=== PATIENT | female | born 1970 | race Caucasian/White ===

== ENCOUNTER 2016-04-18 16:17 | Emergency (ER) | payer OTHER ==
[~2016-04-18] VITALS: Ht 167.6 cm; Wt 87.0 kg
[~2016-04-18 16:17] MED LIST: ASPEC81 PO; BUPR-79 PO; DOXY-300 PO; GEMF600T3 PO; HYG25 PO; LSN10 PO
[2016-04-18 16:26] VITALS: TEMP 36.9; Ht 167.6 cm; Wt 87.0 kg
[2016-04-18] MEDS ORDERED: OXYCODONE HCL IR 5 MG TAB (IMMEDIATE RELEASE) PO STA (16:34)
--- NOTE | 2016-04-18 17:06 | DIAGNOSTIC IMAGING REPORT ---
LEFT FOOT MIN 3 VIEWS ROUTINE CLINICAL HISTORY: L foot pain pain COMPARISON: None DISCUSSION: Heel spur. Minimal degenerative change of the intertarsal as well as tarsometatarsal joints. No well-defined fracture or dislocation. Several well-corticated ossific fragments adjacent to the anterior calcaneus felt to be secondary to old trauma. There is no evidence for soft tissue swelling. IMPRESSION: Heel spur. Minimal to mild degenerative change and or findings secondary to old trauma. No acute process. Electronically signed by: Chito Simental M.D. 04/18/2016 5:04 PM
[2016-04-18] MEDS ORDERED: ASPEC325 PO (17:22)
[2016-04-18] MEDS ORDERED: LSN/10125 PO (17:22)
[2016-04-18] MEDS ORDERED: AMT10 PO (17:22)
[2016-04-18] MEDS ORDERED: OXYC1TAB3 PO (17:23)
[2016-04-18 17:45] VITALS: BP 149/105; PULSE 107; O2SAT 98
--- NOTE | 2016-04-18 18:54 | EMERGENCY ROOM VISIT NOTE ---
History First contact with patient: 16:29 Chief Complaint: FOOT PAIN Stated Complaint: TWISTED LT FOOT, FELT SOMETHING POP, PAIN/NUMB TOE History of Present Illness The patient is a 45 year old female who presents to the Emergency Room with complaints of severe left foot pain. The patient reports that she was walking across her barn floor when she twisted her foot on a board. She reports a popping sensation on the outer aspect of the foot, and pain that escalated to a 10 out of 10 with any weightbearing. She denies any pain extending into the ankle or leg. She reports mild paresthesias of the foot and toes. The patient reports that she has been having problems with her foot, and is scheduled to see [facility] in 3 days. She denies a prior history of left foot fractures. Review of Systems 10 system review was performed and was negative except for pertinent positives and negatives as indicated in history of present illness Past Medical/Surgical History Medical Problems: (1) Colitis (2) Diverticulitis (3) Meningitis Family History Hypertension FATHER MOTHER Social History Smoking Status: Never Smoker Drug Use: none Marital Status: Housing Status: lives with family Occupation Status: employed Current/Historical Medications Scheduled Amitriptyline HCl (Amitriptyline HCl), 10 MG PO QPM Aspirin (Aspirin), 650 MG PO BID Bupropion (Wellbutrin Sr), 150 MG PO BID Gemfibrozil (Lopid), 600 MG PO BID Hctz/Lisinopril (Lisinopril/Hctz 10/12.5 Mg), 1 TAB PO QAM Scheduled PRN Oxycodone Ir (Roxicodone Ir), 1-2 TAB PO Q4H PRN for Pain Allergies Coded Allergies: No Known Allergies (Verified , 04/18/16) Physical Exam Vital Signs Date Time Temp Pulse Resp B/P Pulse Ox O2 Delivery O2 Flow Rate FiO2 04/18/16 17:45 107 18 149/105 98 Room Air 04/18/16 16:26 36.9 116 18 139/97 100 Room Air Physical Exam CONSTITUTIONAL: Healthy and well nourished. Alert and oriented X 3 with positive affect. Patient appears in moderately severe discomfort. HEENT: Normocephalic, atraumatic. Pupils equal, round and reactive. NECK: Full active range of motion without discomfort. MUSCULOSKELETAL: Examination shows diffuse lateral foot edema and ecchymosis. She has no focal tenderness over the ankle region, dorsal midfoot, phalanges or calcaneus. Pedal pulses are intact. INTEGUMENTARY: No rash or other significant dermatologic conditions noted. NEUROLOGIC: Left foot and toes are sensory intact. Medical Decision & Procedures ER Provider Diagnostic Interpretation: My interpretation of left foot x-rays does not show any acute fractures or dislocations. Chronic changes are noted, including a calcaneal spur. Radiologist report is as follows: LEFT FOOT MIN 3 VIEWS ROUTINE CLINICAL HISTORY: L foot pain pain COMPARISON: None DISCUSSION: Heel spur. Minimal degenerative change of the intertarsal as well as tarsometatarsal joints. No well-defined fracture or dislocation. Several well-corticated ossific fragments adjacent to the anterior calcaneus felt to be secondary to old trauma. There is no evidence for soft tissue swelling. IMPRESSION: Heel spur. Minimal to mild degenerative change and or findings secondary to old trauma. No acute process. Medications Administered Medications (Trade) Dose Ordered Sig/Vj Route Start Time Stop Time Status Last Admin Dose Admin Oxycodone HCl (Roxicodone Immediate Rel Tab) 5 mg NOW STAT PO 04/18/16 16:34 04/18/16 16:35 DC 04/18/16 16:48 5 MG ED Course Patient history and physical exam were performed. Nurse's notes were reviewed. The patient was administered OxyIR 5 mg for pain. She refused any intramuscular treatment. She also was provided an ice pack. X-rays of the left foot did not show any acute findings. The patient was fitted with crutches , and encouraged to remain nonweightbearing. Ibuprofen and Tylenol in alternating fashion for baseline pain relief. The patient received a prescription for OxyIR as needed for breakthrough pain. No drinking or driving while taking OxyIR. The patient will follow-up with [facility] on Sunday as scheduled. The patient was happy with plan of care, and rated her pain a 5 out of 10 at the time of discharge. Medical Decision Impression Primary Impression: Injury of left foot Departure Information Prescriptions Oxycodone Ir (Roxicodone Ir) 5 Mg Tab 1-2 TAB PO Q4H Y for Pain, #15 TAB For Initial Treatment Prov: Moo Quintanilla PA 04/18/16 Referrals Sapna Perez M.D. (PCP) Patient Instructions A Signature Page, My [facility]
== END 2016-04-18 17:47 | disposition home or self-care (01) ==
LOC: C.EDB 16:18 → C.EDD 17:47
DX: S99.922A Unspecified injury of left foot, initial encounter (principal); X50.1XXA Overexertion from prolonged static or awkward postures, initial encounter; Y93.01 Activity, walking, marching and hiking; Z79.82 Long term (current) use of aspirin

== ENCOUNTER → 2016-05-19 | Outpatient (CLI) | payer OTHER ==
[~2016-05-19] MED LIST changes: +AMT10 PO; +ASPEC325 PO; -ASPEC81 PO; -DOXY-300 PO; -HYG25 PO; +LSN/10125 PO; -LSN10 PO; +OXYC1TAB3 PO
[2016-05-19 11:06] LABS: BLOOD UREA NITROGEN 28 mg/dl (7-18); BUN/CREATININE RATIO 23.2 (10-20); CALCIUM 9.9 mg/dl (8.5-10.1); CARBON DIOXIDE 24 mmol/L (21-32); CHLORIDE 106 mmol/L (98-107); GLUCOSE 103 mg/dl (70-99); POTASSIUM 4.4 mmol/L (3.5-5.1); SODIUM 141 mmol/L (136-145)
== END | disposition home or self-care (01) ==
LOC: C.LAB 09:36
PROVIDERS: ATTEND Family Medicine
DX: E66.9 Obesity, unspecified (principal)

== ENCOUNTER → 2016-06-21 | Outpatient (CLI) | payer OTHER ==
--- NOTE | 2016-06-21 10:12 | DIAGNOSTIC IMAGING REPORT ---
MRI OF THE LEFT ANKLE NO CONTRAST CLINICAL HISTORY: Left ankle pain. History of trauma 2 years ago. COMPARISON STUDY: Conventional radiographic study the left foot dated 04/18/2016 FINDINGS: Imaging was performed in the sagittal, axial, and coronal planes. The talar dome appears unremarkable in appearance. There is no evidence of major ligamentous disruption. There is a partial tear the peroneus longus tendon. There is marrow edema within the base of the third, fourth and fifth metatarsals. There is also marrow edema present within the medial cuneiform. There is a prominent plantar calcaneal spur with subjacent marrow edema. There is mild edema within the medial band of the plantar fascia at the calcaneal insertion. The findings are consistent with plantar fasciitis. IMPRESSION: 1. Plantar fasciitis with secondary reactive marrow edema involving the calcaneus 2. Tendinopathy and partial tear of the peroneus longus tendon 3. Nonspecific marrow edema within within the fourth third and second metatarsal bases. There is also marrow edema present within the medial cuneiform. Electronically signed by: Nick Duke M.D. 06/21/2016 10:11 AM Dictated Date/Time: 06/21/2016 10:02 AM
== END | disposition home or self-care (01) ==
LOC: C.MRI 08:38
PROVIDERS: ATTEND Orthopaedic Surgery Sports Medicine
DX: M72.2 Plantar fascial fibromatosis (principal); S96.812A Strain of other specified muscles and tendons at ankle and foot level, left foot, initial encounter; X58.XXXA Exposure to other specified factors, initial encounter; R60.0 Localized edema

== ENCOUNTER → 2016-06-22 | Outpatient (CLI) | payer OTHER ==
--- NOTE | 2016-06-22 15:37 | MAMMOGRAPHY REPORT ---
BILATERAL DIGITAL SCREENING MAMMOGRAM TOMOSYNTHESIS WITH CAD: 06/22/2016 CLINICAL HISTORY: Routine screening. Patient has no complaints. TECHNIQUE: Breast tomosynthesis in addition to standard 2D mammography was performed. Current study was also evaluated with a Computer Aided Detection (CAD) system. COMPARISON: Comparison is made to exams dated: 06/15/2015 mammogram and 06/11/2014 mammogram - [facility]. BREAST COMPOSITION: There are scattered areas of fibroglandular density in both breasts. FINDINGS: No suspicious masses, calcifications, or areas of architectural distortion are noted in e ither breast. There has been no significant interval change compared to prior exams. IMPRESSION: ACR BI-RADS CATEGORY 1: NEGATIVE There is no mammographic evidence of malignancy. A 1 year screening mammogram is recommended. The p atient will receive written notification of the results. Approximately 10% of breast cancers are not detected with mammography. A negative mammographic repor t should not delay biopsy if a clinically suggestive mass is present. Shwetha Kolb M.D. ah/:06/22/2016 14:12:42 Clinical Fellow: Angie STRICKLAND(R)(M), [facility] letter sent: Normal 1/2 BI-RADS Code: ACR BI-RADS Category 1: Negative
== END | disposition home or self-care (01) ==
LOC: C.MAMM 12:42
PROVIDERS: ATTEND Family Medicine
DX: Z12.31 Encounter for screening mammogram for malignant neoplasm of breast (principal)

== ENCOUNTER → 2017-03-15 | Outpatient (CLI) | payer OTHER ==
[~2017-03-15] MED LIST changes: -OXYC1TAB3 PO
--- NOTE | 2017-03-15 09:52 | DIAGNOSTIC IMAGING REPORT ---
ULTRASOUND RIGHT UPPER QUADRANT ABDOMEN CLINICAL HISTORY: Right upper quadrant abdominal pain. COMPARISON STUDY: Abdominal CT dated 03/27/2013. TECHNIQUE: Real-time, grayscale, and color flow sonography of the right upper quadrant of the abdomen was performed. Images are reviewed in the transverse and longitudinal planes. FINDINGS: Liver: The liver is mildly enlarged and demonstrates heterogeneously increased echotexture consistent with hepatic steatosis. There is no intrahepatic biliary ductal dilatation. The main portal vein is patent. Gallbladder: The gallbladder is normal in appearance. No gallstones are identified. There is no gallbladder wall thickening or pericholecystic fluid. A sonographic Lockhart's sign is reportedly absent. The common bile duct measures up to 0.5 cm in diameter. Pancreas: Visualized portions of the pancreatic head and body are normal in appearance. The majority of the pancreas was not well imaged. Right kidney: Survey images of the right kidney demonstrate normal size and echotexture. There is no hydronephrosis. Ascites: None. IMPRESSION: 1. No acute sonographic abnormality is identified in the right upper quadrant. No gallstones are seen. 2. Hepatomegaly and hepatic steatosis. Electronically signed by: Fuad Miramontes M.D. 03/15/2017 9:51 AM Dictated Date/Time: 03/15/2017 9:50 AM
== END | disposition home or self-care (01) ==
LOC: C.ULTR 09:00
PROVIDERS: ATTEND Family Medicine
DX: R07.2 Precordial pain (principal)

== ENCOUNTER 2017-06-05 05:14 | Emergency (ER) | payer OTHER ==
[~2017-06-05] VITALS: Ht 167.6 cm; Wt 92.5 kg
[2017-06-05 05:18] VITALS: Ht 167.6 cm; Wt 92.5 kg
[2017-06-05] MEDS ORDERED: SODIUM CHLORIDE 0.9% 1000ML 1,000 ML IV STA (05:31)
[2017-06-05] MEDS ORDERED: FAMOTIDINE 20MG/5ML IV PUSH IV STA (05:31)
[2017-06-05] MEDS ORDERED: DiphenhydrAMINE HCL 50 MG/ML VIAL IV STA (05:31)
--- NOTE | 2017-06-05 05:42 | EMERGENCY ROOM VISIT NOTE ---
History First contact with patient: 05:27 Chief Complaint: RASH Stated Complaint: RAPIDLY GROWING RASH OVER BODY History of Present Illness The patient is a 46 year old female who presents to the Emergency Room for hives. Patient notes blotching hives which are severely itchy that started on foot and have spread to most of body. Began this evening. Associated with itching. No respiratory issues. No lip/tongue swelling. No nausea, vomiting, fevers, chills, sob, cp, abdominal pain no other symptoms. No known allergens. Notes sinus infection treated with Augmentin that she finished yesterday. No steroids used. Notes some mild continued sinus congestion. No medications prior to arrival. Nothing makes symptoms better nor worse. No history of anaphylaxis. No chemical exposures. Review of Systems See HPI for pertinent positives & negatives. A total of 10 systems reviewed and were otherwise negative. Past Medical/Surgical History Medical Problems: (1) Colitis (2) Depressive Disorder Nec (3) Diverticulitis (4) Hypertension (5) Meningitis Family History Hypertension FATHER MOTHER Social History Smoking Status: Never Smoker Drug Use: none Marital Status: Housing Status: lives with family Occupation Status: employed Current/Historical Medications Scheduled Aspirin (Aspirin Ec), 81 MG PO DAILY Bupropion (Wellbutrin Sr), 150 MG PO BID Famotidine (Pepcid), 20 MG PO BID Gemfibrozil (Lopid), 600 MG PO BID Lisinopril (Zestril), 10 MG PO DAILY Methylprednisolone (Medrol Dosepak), 1 PKT PO UD Prednisone (Prednisone), 50 MG PO DAILY Physical Exam Vital Signs Date Time Temp Pulse Resp B/P (MAP) Pulse Ox O2 Delivery O2 Flow Rate FiO2 06/05/17 08:19 36.8 92 18 125/83 97 06/05/17 07:12 80 18 118/77 100 Room Air 06/05/17 05:18 36.5 119 20 155/95 93 Room Air Physical Exam GENERAL: Patient is anxious appearing and in mild distress. Scratching all over body HEENT: No acute trauma, normocephalic atraumatic, mucous membranes moist, no nasal congestion, no scleral icterus. NECK: No stridor, no adenopathy, no meningismus, trachea is midline. LUNGS: No dyspnea. Clear to auscultation and equal bilaterally. No wheeze, no rhonchi. HEART: Tachy. No murmurs, rubs, gallops appreciated. EXTREMITIES: Normal motion all extremities, no cyanosis, no edema. NEUROLOGIC: Alert and oriented, no acute motor or sensory deficits, no focal weakness, cranial nerves grossly intact. SKIN: Hives/urticarial rash over much of arms, legs, back, abdomen, chest, posterior neck, right ear, cheeks. no jaundice, no diaphoresis. Medical Decision & Procedures Medications Administered Medications (Trade) Dose Ordered Sig/Vj Route Start Time Stop Time Status Last Admin Dose Admin Diphenhydramine HCl (Benadryl Inj) 50 mg NOW STAT IV 06/05/17 05:31 06/05/17 05:33 DC 06/05/17 05:47 50 MG Dexamethasone Sodium Phosphate (Dexamethasone Inj Pf) 10 mg NOW ONCE IV 06/05/17 05:45 06/05/17 05:46 DC 06/05/17 05:46 10 MG Sodium Chloride 1,000 ml @ 999 mls/hr Q1H1M STAT IV 06/05/17 05:31 06/05/17 06:34 DC 06/05/17 05:46 999 MLS/HR Famotidine (Pepcid 20mg Iv Push) 20 mg ONE STAT IV 06/05/17 05:31 06/05/17 05:33 DC 06/05/17 05:47 20 MG Medical Decision Differential: Contact Dermatitis, Viral Exanthem, Urticaria, Allergic Reaction, SJS, Toxic Epidermal Necrolysis, Erythema Multiforme, Cellulitis, Scabies, HSV, Varicella, Zoster, Eczema, Staph Scalded Skin, Fungal, amongst other pathologies entertained. 46 yr old female with extensive urticarial rash following finishing antibiotic. No evidence of anaphylaxis. She is stable and symptoms resolved. Monitored for a few hours and doing well. Discharged to home with plan to start steroids and reviewed standard approach to allergic reactions. Aware symptoms requiring RTED. Medication Reconcilliation Current Medication List: was personally reviewed by me Blood Pressure Screening Patient's blood pressure: Normal blood pressure Impression Primary Impression: Allergic reaction to Augmentin Additional Impression: Urticaria of entire body Departure Information Dispostion Home / Self-Care Condition GOOD Referrals Sapna Perez M.D. (PCP) Patient Instructions ED Drug React Allergic, My [facility] Problem Qualifiers
[2017-06-05] MEDS ORDERED: DEXAMETHASONE **PF** INJ 10 MG/ML VIAL IV ONE (05:45)
[2017-06-05] MEDS ORDERED: LISI-461 PO (05:49)
[2017-06-05] MEDS ORDERED: ASPI81TA28 PO (05:50)
[2017-06-05] MEDS ORDERED: METH4PAK PO ×2 (07:40→10:04)
[2017-06-05] MEDS ORDERED: FAMO20TA9 PO (07:40)
[2017-06-05 08:19] VITALS: BP 125/83; PULSE 92; TEMP 36.8; O2SAT 97
[2017-06-06] MEDS ORDERED: FAMO20TA11 PO (10:03)
[2017-06-06] MEDS ORDERED: PRED50TA PO (13:52)
== END 2017-06-05 08:20 | disposition home or self-care (01) ==
LOC: C.EDB 05:15 → C.EDA 08:20
DX: T36.95XA Adverse effect of unspecified systemic antibiotic, initial encounter (principal); L50.9 Urticaria, unspecified; F32.9 Major depressive disorder, single episode, unspecified; I10 Essential (primary) hypertension; Z82.49 Family history of ischemic heart disease and other diseases of the circulatory system; Z79.82 Long term (current) use of aspirin

== ENCOUNTER 2017-06-06 09:37 | Emergency (ER) | payer OTHER ==
[~2017-06-06] VITALS: Ht 167.6 cm; Wt 93.0 kg
[~2017-06-06 09:37] MED LIST changes: -AMT10 PO; -ASPEC325 PO; +ASPI81TA28 PO; +FAMO20TA9 PO; +LISI-461 PO; -LSN/10125 PO; +METH4PAK PO
[2017-06-06 09:43] VITALS: TEMP 36.4; Ht 167.6 cm; Wt 93.0 kg
[2017-06-06] MEDS ORDERED: FAMO20TA11 PO (10:03)
[2017-06-06] MEDS ORDERED: FAMOTIDINE 20MG/5ML IV PUSH IV STA (10:05)
[2017-06-06] MEDS ORDERED: SODIUM CHLORIDE 0.9% 1000ML 1,000 ML IV STA ×2 (10:05→11:42)
[2017-06-06] MEDS ORDERED: METHYLPREDNISOLONE 125 MG VIAL IV STA (10:05)
[2017-06-06] MEDS ORDERED: DiphenhydrAMINE HCL 50 MG/ML VIAL IV STA ×2 (10:05→13:48)
[2017-06-06] MEDS ORDERED: ONDANSETRON INJ 2 MG/ML 2 ML VIAL IV STA (10:06)
[2017-06-06] MEDS ORDERED: EPINEPHRINE ADULT AUTO-INJECT 0.3 MG SYR IM STA (10:27)
[2017-06-06 10:31] LABS: BASO % 0.1 %; BASO ABS # 0.01 K/uL (0-0.2); EOS % 0.2 %; EOS ABS # 0.03 K/uL (0-0.5); HEMOGLOBIN 15.8 g/dL (12.0-16.0); IG# 0.06 K/uL (0.00-0.02); LYMPH % 7.5 %; LYMPH ABS # 1.23 K/uL (1.2-3.4); MEAN CELL VOLUME 87.5 fL (80-100); MEAN CORPUSCULAR HEMOGLOBIN 30.7 pg (25-34); MEAN CORPUSCULAR HGB CONC 35.1 g/dl (32-36); MEAN PLATELET VOLUME 10.4 fL (7.4-10.4); MONO % 1.1 %; MONO ABS # 0.18 K/uL (0.11-0.59); NEUT % 90.7 %; PLATELET COUNT 374 K/uL (130-400); RED CELL DISTRIBUTION WIDTH CV 13.8 % (11.5-14.5); RED CELL DISTRIBUTION WIDTH SD 44.4 fL (36.4-46.3); WHITE BLOOD COUNT 16.31 K/uL (4.8-10.8)
[2017-06-06 10:42] LABS: CALCIUM 9.2 mg/dl (8.5-10.1); CREATININE 1.2 mg/dl (0.60-1.20); POTASSIUM 4.4 mmol/L (3.5-5.1)
--- NOTE | 2017-06-06 11:18 | DIAGNOSTIC IMAGING REPORT ---
CHEST ONE VIEW PORTABLE CLINICAL HISTORY: Nausea, rash, swelling. COMPARISON STUDY: 10/10/2015 FINDINGS: The cardiac and mediastinal contours are normal. There is no evidence of focal pulmonary consolidation. There is no evidence of failure. No pleural effusions are visualized.[ IMPRESSION: No active disease in the chest. Electronically signed by: Nick Duke M.D. 06/06/2017 11:17 AM Dictated Date/Time: 06/06/2017 11:17 AM
[2017-06-06] MEDS ORDERED: PRED50TA PO (13:52)
[2017-06-06 15:06] VITALS: BP 138/83; PULSE 107; O2SAT 98
--- NOTE | 2017-06-06 16:03 | EMERGENCY ROOM VISIT NOTE ---
History Report prepared by Tanna: Leobardo Colindres Under the Supervision of: Dr. Travis Gee D.O. First contact with patient: 09:49 Chief Complaint: ALLERGIC REACTION Stated Complaint: RASH, WELTS, SWELLING, LIGHT HEADED, NAUSEOUS History of Present Illness The patient is a 46 year old female who presents to the Emergency Room with complaints of an allergic reaction that began yesterday morning. She has been experiencing cold-like symptoms including sinus congestion and pressure for the past three weeks. Last week, she was started on Augmentin. She has only had Augmentin two other times in her life, and they were a long time ago. Yesterday morning, she woke up with swelling to her face and lips with hives and itchiness globally. She presented to the ER and was given steroids and IV medications. She stopped the Augmentin. She was then discharged. She woke up this morning, took her first dose of Steroids, and her symptoms represented themselves worse than they started. However, now she feels lightheaded and nauseated. She denies any new travel, soaps, detergents, clothing, perfume, pets , or animals exposure. She denies any abnormal foods or drink. She is able to swallow but feels mildly short of breath. She notes that she did take a dose of Benadryl this morning. Pt denies headache, change in vision, fevers, chest pain , vomiting, diarrhea, pain with urination, and melena. Source of History: patient Onset: yesterday morning Position: other (Global) Symptom Intensity: moderate Quality: other (Allergic Reaction) Timing: worsening Associated Symptoms: + SOB (mild), + nausea, No fevers, No headache, No chest pain, No vomiting, No melena, No diarrhea, No urinary symptoms Note: She is experiencing swelling to her lips and face with hives and itching globally. Review of Systems See HPI for pertinent positives & negatives. A total of 10 systems reviewed and were otherwise negative. Past Medical & Surgical Medical Problems: (1) Colitis (2) Depressive Disorder Nec (3) Diverticulitis (4) Hypertension (5) Meningitis Family History Hypertension FATHER MOTHER Social History Smoking Status: Never Smoker Drug Use: none Marital Status: Housing Status: lives with family Occupation Status: employed Current/Historical Medications Scheduled Aspirin (Aspirin Ec), 81 MG PO DAILY Bupropion (Wellbutrin Sr), 150 MG PO BID Famotidine (Pepcid), 20 MG PO BID Gemfibrozil (Lopid), 600 MG PO BID Lisinopril (Zestril), 10 MG PO DAILY Methylprednisolone (Medrol Dosepak), 1 PKT PO UD Prednisone (Prednisone), 50 MG PO DAILY Allergies Coded Allergies: Amoxicillin (Unverified Allergy, Severe, anaphalaxis, 06/06/17) Clavulanic Acid (Unverified Allergy, Mild, HIVES, 06/06/17) Physical Exam Vital Signs Date Time Temp Pulse Resp B/P (MAP) Pulse Ox O2 Delivery O2 Flow Rate FiO2 06/06/17 15:06 107 20 138/83 98 Room Air 06/06/17 14:26 100 21 06/06/17 14:16 107/78 06/06/17 14:11 107 23 06/06/17 14:01 123/92 06/06/17 13:56 110 22 06/06/17 13:46 106/84 06/06/17 13:41 111 18 06/06/17 13:30 101/68 06/06/17 13:26 88 18 06/06/17 13:16 84/68 06/06/17 13:11 99 20 06/06/17 13:01 100/63 06/06/17 12:56 85 16 06/06/17 12:51 82 16 06/06/17 12:46 105/85 06/06/17 12:36 88 17 06/06/17 12:31 105/71 06/06/17 12:21 88 20 06/06/17 12:15 118/75 06/06/17 12:06 82 17 100 06/06/17 12:01 90/74 06/06/17 11:51 81 15 100 06/06/17 11:46 103/72 06/06/17 11:36 79 15 100 06/06/17 11:31 103/72 06/06/17 11:21 77 17 100 06/06/17 11:16 104/75 06/06/17 11:06 83 25 98 06/06/17 11:01 97/71 06/06/17 10:56 100 Room Air 06/06/17 10:54 94/65 06/06/17 10:52 76 14 100 06/06/17 10:45 93/72 06/06/17 10:37 84 14 100 06/06/17 10:31 98/40 06/06/17 10:22 86 18 100 06/06/17 10:19 94/39 06/06/17 10:04 100 06/06/17 09:52 Room Air 06/06/17 09:43 36.4 96 20 122/64 97 Room Air Physical Exam GENERAL: Sitting up in bed, talking in full sentences, alert, well appearing, well nourished, no distress, non-toxic EYE EXAM: normal conjunctiva. PERRL and EOM's grossly intact. OROPHARYNX: no exudate, no erythema, buccal mucosa, and tongue normal and mucous membranes are moist. Minimal swelling of the upper lip. Tolerating secretions. NECK: supple, no nuchal rigidity, no adenopathy, non-tender, no stridor LUNGS: Clear to auscultation. Normal chest wall mechanics HEART: no murmurs, S1 normal and S2 normal ABDOMEN: abdomen soft, non-tender, normo-active bowel sounds, no masses, no rebound or guarding. BACK: Back is symmetrical on inspection and there is no deformity, no midline tenderness, no CVA tenderness. SKIN: Diffuse urticaria to the back, bilateral lower extremities, bilateral upper extremities, and chest. UPPER EXTREMITIES: upper extremities are grossly normal. LOWER EXTREMITIES: No pitting edema. NEURO EXAM: Normal sensorium, cranial nerves II-XII grossly intact, normal speech, no gross weakness of arms, no gross weakness of legs. Medical Decision & Procedures ER Provider Diagnostic Interpretation: Radiology results as stated below per my review and the radiologist's interpretation: CHEST ONE VIEW PORTABLE CLINICAL HISTORY: Nausea, rash, swelling. COMPARISON STUDY: 10/10/2015 FINDINGS: The cardiac and mediastinal contours are normal. There is no evidence of focal pulmonary consolidation. There is no evidence of failure. No pleural effusions are visualized.[ IMPRESSION: No active disease in the chest. Electronically signed by: Nick Duke M.D. 06/06/2017 11:17 AM Dictated Date/Time: 06/06/2017 11:17 AM Laboratory Results 06/06/17 10:00 Red Blood Count 5.14, Mean Corpuscular Volume 87.5, Mean Corpuscular Hemoglobin 30.7, Mean Corpuscular Hemoglobin Concent 35.1, Mean Platelet Volume 10.4, Neutrophils (%) (Auto) 90.7, Lymphocytes (%) (Auto) 7.5, Monocytes (%) (Auto) 1.1, Eosinophils (%) (Auto) 0.2, Basophils (%) (Auto) 0.1, Neutrophils # (Auto) 14.80, Lymphocytes # (Auto) 1.23, Monocytes # (Auto) 0.18, Eosinophils # (Auto) 0.03, Basophils # (Auto) 0.01 06/06/17 10:05 Test 06/06/17 10:00 06/06/17 10:05 White Blood Count 16.31 K/uL (4.8-10.8) Red Blood Count 5.14 M/uL (4.2-5.4) Hemoglobin 15.8 g/dL (12.0-16.0) Hematocrit 45.0 % (37-47) Mean Corpuscular Volume 87.5 fL (80-100) Mean Corpuscular Hemoglobin 30.7 pg (25-34) Mean Corpuscular Hemoglobin Concent 35.1 g/dl (32-36) Platelet Count 374 K/uL (130-400) Mean Platelet Volume 10.4 fL (7.4-10.4) Neutrophils (%) (Auto) 90.7 % Lymphocytes (%) (Auto) 7.5 % Monocytes (%) (Auto) 1.1 % Eosinophils (%) (Auto) 0.2 % Basophils (%) (Auto) 0.1 % Neutrophils # (Auto) 14.80 K/uL (1.4-6.5) Lymphocytes # (Auto) 1.23 K/uL (1.2-3.4) Monocytes # (Auto) 0.18 K/uL (0.11-0.59) Eosinophils # (Auto) 0.03 K/uL (0-0.5) Basophils # (Auto) 0.01 K/uL (0-0.2) RDW Standard Deviation 44.4 fL (36.4-46.3) RDW Coefficient of Variation 13.8 % (11.5-14.5) Immature Granulocyte % (Auto) 0.4 % Immature Granulocyte # (Auto) 0.06 K/uL (0.00-0.02) Anion Gap 11.0 mmol/L (3-11) Est Creatinine Clear Calc Drug Dose 66.6 ml/min Estimated GFR () 62.3 Estimated GFR (Non- 53.8 BUN/Creatinine Ratio 22.6 (10-20) Calcium Level 9.2 mg/dl (8.5-10.1) Laboratory results per my review. Medications Administered Medications (Trade) Dose Ordered Sig/Vj Route Start Time Stop Time Status Last Admin Dose Admin Diphenhydramine HCl (Benadryl Inj) 50 mg NOW STAT IV 06/06/17 10:05 06/06/17 10:07 DC 06/06/17 10:15 50 MG Methylprednisolone Sodium Succinate (Solu-Medrol IV) 125 mg NOW STAT IV 06/06/17 10:05 06/06/17 10:07 DC 06/06/17 10:17 125 MG Famotidine (Pepcid 20mg Iv Push) 40 mg ONE STAT IV 06/06/17 10:05 06/06/17 10:07 DC 06/06/17 10:19 40 MG Sodium Chloride 1,000 ml @ 999 mls/hr Q1H1M STAT IV 06/06/17 10:05 06/06/17 11:05 DC 06/06/17 10:18 999 MLS/HR Ondansetron HCl (Zofran Inj) 4 mg NOW STAT IV 06/06/17 10:06 06/06/17 10:07 DC 06/06/17 10:19 4 MG Epinephrine (Epipen) 0.3 mg NOW STAT IM 06/06/17 10:27 06/06/17 10:28 DC 06/06/17 10:32 0.3 MG Sodium Chloride 1,000 ml @ 999 mls/hr Q1H1M STAT IV 06/06/17 11:42 06/06/17 12:42 DC 06/06/17 12:50 999 MLS/HR Diphenhydramine HCl (Benadryl Inj) 50 mg NOW STAT IV 06/06/17 13:48 06/06/17 13:49 DC 06/06/17 14:23 50 MG ECG Per My Interpretation Indication: nausea Rate (beats per minute): 75 Rhythm: sinus rhythm Findings: other (No PVC, normal intervals) ED Course ED COURSE: Vital signs were reviewed and showed hypotension The patients medical record was reviewed The above diagnostic studies were performed and reviewed. ED treatments and interventions as stated above. 0949: The patient was evaluated in room A2. A complete history and physical examination was performed. 1005: Ordered Sodium Chloride 1000 ml @ 999 mls/hr IV, Famotidine 40 mg IV, Solu -Medrol IV 125 mg IV, Benadryl Inj 50 mg IV 1006: Ordered Zofran Inj 4 mg IV 1027: The patient now feels a tightness in her thought. Ordered Epipen 0.3 mg IM 1042: She states that her symptoms are not getting worse. She received the Epipen 5 minutes ago. 1116: Upon reevaluation, the patient feels much better. Her throat issue has resolved. 1142: Ordered Sodium Chloride 1000 ml @ 999 mls/hr IV 1218: The patient feels back to normal with mild swelling to her hands and upper lip. 1348: I updated her at this time. She is still having some mild itching. Ordered Benadryl 50 mg IV 1350: Upon reevaluation, the patient is resting.I discussed my findings with the patient and she understands and agrees with the treatment plan. Based on the patients age, coexisting illnesses, exam and lab findings the decision to treat as an outpatient was made. The patient remained stable while under my care. The patient appeared well at the time of discharge. 1430: The patient was concerned about the possibility of having to come back to the ER. I assured her that if anything worsens, she is welcome to come back to the ER. I offered her further inpatient treatment, but she is comfortable with going home and denied. Medical Decision Differential diagnosis: Etiologies such as allergic reaction, anaphylaxis, urticaria, Lozano-Fantasma syndrome, toxic epidermal necrolysis, erythema multiforme, cellulitis, as well as others were entertained. Patient is a 46-year-old female that presents to the ER for allergic reaction. She was seen here yesterday for allergic reaction. She had diffuse urticaria. She was discharged on steroids. This morning she woke up and she had swelling of her face including eyes and upper lip. She also had diffuse itching and hives. CBC shows mild leukocytosis. BMP had a CO2 of 18. Chest x-ray and EKG were unremarkable. She had no oral involvement or mucous membrane involvement to suggest SJS/TEN. Patient was given IV steroids, famotidine and Benadryl along with IM EpiPen she had some swelling in her throat. She was observed for 5 hours. The swelling around her eyes and mouth nearly completely resolved. She did have some mild urticaria and swelling of her hands which was persistent. She was given an extra dose of Benadryl as just prior to discharge she started having increased itching. She was discharged with steroids to take 50 mg twice a day. Any worsening of her symptoms she will return to the ER. She was able to eat and drink a full lunch without difficulty. She was a little hesitant about going home and was concerned about going back to give her strict instructions to return. Discussed with Pt concerning signs and symptoms to watch out for. Pt was instructed to follow up with their PCP and discussed with the patient their option to return to the ED at anytime for persistent or worsening symptoms. The appropriate anticipatory guidance and out-patient management, including indications for return to the emergency department, were explained at length to the patient and understood. Medication Reconcilliation Current Medication List: was personally reviewed by me Blood Pressure Screening Patient's blood pressure: Low blood pressure Impression Primary Impression: Allergic reaction Scribe Attestation The scribe's documentation has been prepared under my direction and personally reviewed by me in its entirety. I confirm that the note above accurately reflects all work, treatment, procedures, and medical decision making performed by me. Departure Information Dispostion Home / Self-Care Prescriptions Prednisone (PREDNISONE) 50 Mg Tab 50 MG PO DAILY for 4 Days, TAB Prov: Travis Gee, DO 06/06/17 Referrals Sapna Perez M.D. (PCP) Forms HOME CARE DOCUMENTATION FORM, IMPORTANT VISIT INFORMATION, Work Instructions Patient Instructions ED Allergic Reaction General Other, My [facility] Additional Instructions Please follow up with your primary care doctor with in the next 24 hours. Any worsening of your symptoms, please return to the ED immediately. This includes any fevers greater than 100.4, worsening pain, swelling of the throat, trouble swallowing or trouble breathing chest pain, shortness breath, persistent nausea , vomiting, unable to eat or drink, or any other concerning signs or symptoms from your standpoint. Please take 50 mg of Benadryl every 6 hours for the next 2 days. Please take Pepcid as previously prescribed. Please take 50 mg of steroids tonight. Take another dose tomorrow morning. And one Sunday morning. If you start to have a recurrence of your symptoms late you can take that dose which was for Sunday, night. Please do not drive while taking Benadryl or 8 hours following taking this medication. Problem Qualifiers Primary Impression: Allergic reaction Encounter type: initial encounter Qualified Codes: T78.40XA - Allergy, unspecified, initial encounter
[2017-06-07] MEDS ORDERED: LSN/10125 PO (14:32)
== END 2017-06-06 15:19 | disposition home or self-care (01) ==
LOC: C.EDB 09:38 → C.EDA 15:19
DX: T78.40XA Allergy, unspecified, initial encounter (principal); X58.XXXA Exposure to other specified factors, initial encounter; L50.9 Urticaria, unspecified; F32.9 Major depressive disorder, single episode, unspecified; I10 Essential (primary) hypertension; Z79.82 Long term (current) use of aspirin; Z82.49 Family history of ischemic heart disease and other diseases of the circulatory system; Z88.0 Allergy status to penicillin

== ENCOUNTER 2017-06-07 11:41 | Inpatient (IN) | payer OTHER ==
[~2017-06-07] VITALS: Ht 167.6 cm; Wt 91.9 kg
[~2017-06-07 11:41] MED LIST changes: +FAMO20TA11 PO; -FAMO20TA9 PO; +PRED50TA PO
[2017-06-07] MEDS ORDERED: EPINEPHRINE ADULT AUTO-INJECT 0.3 MG SYR ONE (11:53)
[2017-06-07] MEDS ORDERED: METHYLPREDNISOLONE 125 MG VIAL IV STA (11:54)
[2017-06-07] MEDS ORDERED: DiphenhydrAMINE HCL 50 MG/ML VIAL IV STA ×2 (11:54→17:47)
[2017-06-07] MEDS ORDERED: FAMOTIDINE 20MG/5ML IV PUSH IV STA (11:54)
--- NOTE | 2017-06-07 12:23 | DIAGNOSTIC IMAGING REPORT ---
CHEST ONE VIEW PORTABLE CLINICAL HISTORY: sob dyspnea COMPARISON STUDY: 06/06/2017 FINDINGS: The bones soft tissues and hemidiaphragms are normal. The cardiomediastinal silhouette is normal. The lungs are clear. The pulmonary vasculature is normal. IMPRESSION: Negative chest. The above report was generated using voice recognition software. It may contain grammatical, syntax or spelling errors. Electronically signed by: Chito Simental M.D. 06/07/2017 12:22 PM Dictated Date/Time: 06/07/2017 12:21 PM
[2017-06-07 12:32] LABS: BASO % 0.1 %; BASO ABS # 0.01 K/uL (0-0.2); HEMATOCRIT 40.9 % (37-47); HEMOGLOBIN 14.2 g/dL (12.0-16.0); IG# 0.04 K/uL (0.00-0.02); LYMPH % 11.3 %; LYMPH ABS # 1.67 K/uL (1.2-3.4); MEAN CELL VOLUME 88.5 fL (80-100); MEAN CORPUSCULAR HEMOGLOBIN 30.7 pg (25-34); MEAN CORPUSCULAR HGB CONC 34.7 g/dl (32-36); MEAN PLATELET VOLUME 10.2 fL (7.4-10.4); MONO % 2.2 %; MONO ABS # 0.33 K/uL (0.11-0.59); NEUT % 86.1 %; NEUT ABS # 12.69 K/uL (1.4-6.5); PLATELET COUNT 401 K/uL (130-400); RED CELL DISTRIBUTION WIDTH CV 13.8 % (11.5-14.5); RED CELL DISTRIBUTION WIDTH SD 44.6 fL (36.4-46.3); WHITE BLOOD COUNT 14.74 K/uL (4.8-10.8)
[2017-06-07 12:55] LABS: BLOOD UREA NITROGEN 27 mg/dl (7-18); CALCIUM 9.2 mg/dl (8.5-10.1); CARBON DIOXIDE 21 mmol/L (21-32); CREATININE 1.26 mg/dl (0.60-1.20); GLUCOSE 168 mg/dl (70-99); POTASSIUM 3.8 mmol/L (3.5-5.1); SODIUM 137 mmol/L (136-145)
[2017-06-07] MEDS ORDERED: ALUMINUM/MAGNESIUM/SIMETH (MAALOX MAX) 30 ML UDC PO PRN (14:30)
[2017-06-07] MEDS ORDERED: FAMOTIDINE IV INJ 20 MG in DEXTROSE 5% 100ML 100 ML IV SCH (14:30)
[2017-06-07] MEDS ORDERED: ACETAMINOPHEN 325 MG TAB PO PRN (14:30)
[2017-06-07] MEDS ORDERED: ONDANSETRON INJ 2 MG/ML 2 ML VIAL IV PRN (14:30)
[2017-06-07] MEDS ORDERED: MAGNESIUM HYDROXIDE SUSP 30 ML UDC PO PRN (14:30)
[2017-06-07] MEDS ORDERED: DiphenhydrAMINE 2%/ZINC 0.1% CREAM 28GM TUBE EXT PRN (14:30)
[2017-06-07] MEDS ORDERED: ALBUTEROL HFA 8 GM INHALER INH PRN ×2 (14:30→18:15)
[2017-06-07] MEDS ORDERED: LSN/10125 PO (14:32)
--- NOTE | 2017-06-07 14:41 | History and Physical ---
History & Physical Date & Time of Service: Jun 07, 2017 at 14:41 Chief Complaint: Sob, Allergic Reaction Primary Care Physician: Sapna Perez M.D. History of Present Illness Source: patient, clinic records, hospital records This is a 46yo F with a PMH of HTN, HLD and depression who presents with SOB and diffuse itching. Was seen by PCP on 05/26 and was prescribed a 7 day course of augmentin for acute sinusitis. Developed a full body rash, swelling of her face & lips and diffuse itching and presented to the ED of 06/05. Was treated with IV steroids, benadryl, H2 brayden and was discharged home on medrol dose pack and Pepcid. Gordon better until the next morning, when patient returned to ED for worsening itchiness, SOB and throat "tightness". Was given IV steroids, Benadryl and an EpiPen with relief and was discharged home on prednisone. Today , patient noticed SOB upon waking that continued to worsen, so she returned to the ED. Still has diffuse rash with itching. SOB and facial/hand swelling have improved. + Dull, frontal headache. Denies fever, chills, lightheadedness, visual changes, CP, abdominal pain, nausea, vomiting, bowel or bladder changes, weakness or swelling of extremities. Does take lisinopril/hctz for HTN. Endorses poor PO intake over the past few days. Past Medical/Surgical History Medical Problems: (1) Colitis, acute Status: Chronic (2) Depression Status: Chronic (3) HLD (hyperlipidemia) Status: Chronic (4) Hypertension Status: Chronic (5) Meningitis Status: Resolved Family History Hypertension FATHER MOTHER Social History Smoking Status: Never Smoker Drug Use: none Marital Status: Housing status: lives with family Occupational Status: employed Multi-Drug Resistant Organisms History of MDRO: No Allergies Coded Allergies: Amoxicillin (Verified Allergy, Severe, anaphalaxis, 06/07/17) Clavulanic Acid (Unverified Allergy, Mild, HIVES, 06/07/17) Lisinopril (Verified Adverse Reaction, Severe, SHORTNESS OF BREATH, ) angioedema , tounge and face swelling Home Medications Scheduled Aspirin (Aspirin Ec), 81 MG PO DAILY Bupropion (Wellbutrin Sr), 150 MG PO BID Famotidine (Pepcid), 20 MG PO BID Gemfibrozil (Lopid), 600 MG PO BID Hctz/Lisinopril (Lisinopril/Hctz 10/12.5 Mg), 1 TAB PO DAILY Prednisone (Prednisone), 50 MG PO DAILY Review of Systems Ten systems reviewed and negative except as noted in the HPI. Physical Exam Vital Signs Date Time Temp Pulse Resp B/P (MAP) Pulse Ox O2 Delivery O2 Flow Rate FiO2 06/07/17 14:24 94 139/84 98 Room Air 06/07/17 13:29 100 18 115/82 99 Room Air 06/07/17 12:37 103 06/07/17 11:43 37.1 132 20 144/116 100 Room Air General Appearance: WD/WN, no apparent distress, + pertinent finding (Facial flushing, resolving facial edema ) Head: normocephalic, atraumatic Eyes: normal inspection, PERRL, sclerae normal ENT: normal ENT inspection, hearing grossly normal, pharynx normal (Dry mucous membranes. No lesions in oropharynx) Neck: supple, thyroid normal, trachea midline Respiratory/Chest: chest non-tender, lungs clear, normal breath sounds, no respiratory distress, no accessory muscle use Cardiovascular: no murmur, normal peripheral pulses, + tachycardia Abdomen/GI: non tender, soft, no organomegaly Back: normal inspection Extremities/Musculoskelatal: normal inspection, no calf tenderness, no pedal edema Neurologic/Psych: no motor/sensory deficits, alert, normal mood/affect, oriented x 3 Skin: normal color, warm/dry, + rash (Diffuse urticaria observed in BUE, BLE, back and chest ) Diagnostics Laboratory Results Results Past 24 Hours Test 06/07/17 12:09 Range/Units White Blood Count 14.74 4.8-10.8 K/uL Red Blood Count 4.62 4.2-5.4 M/uL Hemoglobin 14.2 12.0-16.0 g/dL Hematocrit 40.9 37-47 % Mean Corpuscular Volume 88.5 80-100 fL Mean Corpuscular Hemoglobin 30.7 25-34 pg Mean Corpuscular Hemoglobin Concent 34.7 32-36 g/dl Platelet Count 401 130-400 K/uL Mean Platelet Volume 10.2 7.4-10.4 fL Neutrophils (%) (Auto) 86.1 % Lymphocytes (%) (Auto) 11.3 % Monocytes (%) (Auto) 2.2 % Eosinophils (%) (Auto) 0.0 % Basophils (%) (Auto) 0.1 % Neutrophils # (Auto) 12.69 1.4-6.5 K/uL Lymphocytes # (Auto) 1.67 1.2-3.4 K/uL Monocytes # (Auto) 0.33 0.11-0.59 K/uL Eosinophils # (Auto) 0.00 0-0.5 K/uL Basophils # (Auto) 0.01 0-0.2 K/uL RDW Standard Deviation 44.6 36.4-46.3 fL RDW Coefficient of Variation 13.8 11.5-14.5 % Immature Granulocyte % (Auto) 0.3 % Immature Granulocyte # (Auto) 0.04 0.00-0.02 K/uL Sodium Level 137 136-145 mmol/L Potassium Level 3.8 3.5-5.1 mmol/L Chloride Level 105 98-107 mmol/L Carbon Dioxide Level 21 21-32 mmol/L Anion Gap 11.0 3-11 mmol/L Blood Urea Nitrogen 27 7-18 mg/dl Creatinine 1.26 0.60-1.20 mg/dl Estimated GFR () 58.8 Estimated GFR (Non- 50.7 BUN/Creatinine Ratio 21.7 10-20 Random Glucose 168 70-99 mg/dl Calcium Level 9.2 8.5-10.1 mg/dl Troponin I < 0.015 0-0.045 ng/ml CXR normal EKG Sinus tachycardia at 109 bpm. Nonspecific T wave abnormality Impression Assessment and Plan This is a 46yo F with a PMH of HTN, HLD and depression who presents with SOB and diffuse itching. Severe drug allergy: -Likely 2/2 amoxicillin. Recently completed 7 day course for sinusitis -Symptoms began the following day. Worsening urticaria, SOB. Facial swelling -No blistering, peeling that would suggest SJS -Was seen in ED 06/05 and 06/06. Discharged on steroid, H2 brayden -Also had angioedema initially. Discontinued lisinopril -Solu-medrol, IV benadryl, vistaril, benadryl cream, pepcid, ativan PRN -IVF resuscitation SOB 2/2 drug allergy: -Neb treatment, albuterol inhaler PRN -Supplemental O2 as appropriate -No respiratory distress Tachycardia: resolved -2/2 pain, dehydration -Cont IVF, pain control Headache: -Likely 2/2 dehydration, lack of sleep -Improved with IVF resuscitation, tramadol PRN HTN: -Normotensive -Discontinued lisinopril -Monitor Depression: -Cont home dose wellbutrin DVT Ppx: SCDs Code status: FULL PCP: Ana Dispo: Medsurg observation. Plan to return home once medically stable. Patient seen in collaboration with Dr. Asif. Please see addendum. ATTENDING ADDENDUM : 46 yo F recently treated with Augmentin for sinus infection presented to ER yesterday with generalized itching , erythematous rash , face and tongue swelling pt was given IV Steroid , Benadryl and Pepcid , Epipen X1 injected as pt was having difficulty breathing presented to ER this Am with worsening of rash , itching and SOB P/E: gen : pleasant , in distress for generalized itching HEENT ; sclera non icteric , PERRLA Ext ; diffuse erythematous maculopapular rash on valdez , torso and upper thing ; + itching Lungs : no wheeze noted A/P : severe drug allergy : possible due to Amoxicillin -added to allergy list pt had Augmentin in past with no allergic reaction also symptoms of angioedema -tongue/face and eyelid swelling -possible to ACEI ( lisinopril D/ludwig added to allergy list ) cont IV Solu Medrol , Benadryl , and Pepcid neb tx ordered for SOB Nanette Asif MD Level of Care Med/Surg Resuscitation Status FULL RESUSCITATION VTE Prophylaxis VTE Risk Assessment Done? Y/N: Yes Risk Level: Moderate Given or contraindicated: SCD's
[2017-06-07] MEDS ORDERED: TRAMADOL HCL 50 MG TAB PO STA (15:09)
[2017-06-07] MEDS ORDERED: IV FLUIDS COMPLETED PRN (15:30)
[2017-06-07 15:38] VITALS: BP 134/87; PULSE 111; TEMP 36.8; O2SAT 97
[2017-06-07] MEDS: SODIUM CHLORIDE 0.9% 1000ML 1,000 ML IV SCH ×2 (15:46→23:47)
[2017-06-07 16:00] VITALS: BP 134/87; PULSE 111; TEMP 36.8; O2SAT 97; Ht 167.6 cm; Wt 91.9 kg
[2017-06-07] MEDS ORDERED: DiphenhydrAMINE HCL 50 MG/ML VIAL IV ONE ×2 (16:30→21:45)
[2017-06-07] MEDS ORDERED: DiphenhydrAMINE INJ 12.5 MG in SYRINGE 0 ML IV SCH ×2 (16:30→22:00)
--- NOTE | 2017-06-07 17:07 | EMERGENCY ROOM VISIT NOTE ---
History Report prepared by Breibjessi: Adonay Iverson Under the Supervision of: Dr. Travis Gee D.O. First contact with patient: 11:50 Chief Complaint: ALLERGIC REACTION Stated Complaint: SOB, ALLERGIC REACTION History of Present Illness The patient is a 46 year old female who presents to the Emergency Room with complaints of a worsening generalized allergic reaction beginning 1.5 hours ago. The patient's symptoms include chest tightness, shortness of breath, hand and face swelling, and trouble swallowing. She was seen in the ED yesterday for similar symptoms, as well as a two days ago. She was discharged on Prednisone ( 50 mg every 12 hours), and Pepcid. The patient was first seen for her symptoms shortly after finishing a seven day course of amoxicillin. She was on the amoxicillin for sinusitis. The patient has taken Benadryl at home but has seen minimal relief. She states that her swelling is much improved from the previous reaction, but her breathing is worse. Source of History: patient Onset: 1.5 hours ago Position: other (generalized) Quality: other (allergic reaction) Timing: worsening Associated Symptoms: + chest pain ("tightness"), + SOB Note: Additional symptoms: face and hand swelling, and difficulty swallowing. Review of Systems See HPI for pertinent positives & negatives. A total of 10 systems reviewed and were otherwise negative. Past Medical & Surgical Medical Problems: (1) Colitis (2) Colitis, acute (3) Depression (4) Depressive Disorder Nec (5) Diverticulitis (6) HLD (hyperlipidemia) (7) Hypertension (8) Meningitis Family History Hypertension FATHER MOTHER Social History Smoking Status: Never Smoker Drug Use: none Marital Status: Housing Status: lives with family Occupation Status: employed Current/Historical Medications Scheduled Aspirin (Aspirin Ec), 81 MG PO DAILY Bupropion (Wellbutrin Sr), 150 MG PO BID Famotidine (Pepcid), 20 MG PO BID Gemfibrozil (Lopid), 600 MG PO BID Hctz/Lisinopril (Lisinopril/Hctz 10/12.5 Mg), 1 TAB PO DAILY Prednisone (Prednisone), 50 MG PO DAILY Allergies Coded Allergies: Amoxicillin (Unverified Allergy, Severe, anaphalaxis, 06/07/17) Clavulanic Acid (Unverified Allergy, Mild, HIVES, 06/07/17) Physical Exam Vital Signs Date Time Temp Pulse Resp B/P (MAP) Pulse Ox O2 Delivery O2 Flow Rate FiO2 06/07/17 13:29 100 18 115/82 99 Room Air 06/07/17 12:37 103 06/07/17 11:43 37.1 132 20 144/116 100 Room Air Physical Exam GENERAL: Sitting up in bed, alert, well appearing, well nourished, moderate distress, non-toxic EYE EXAM: normal conjunctiva. PERRL and EOM's grossly intact. OROPHARYNX: no exudate, no erythema, lips, buccal mucosa, and tongue normal and mucous membranes are moist NECK: supple, no nuchal rigidity, no adenopathy, non-tender. No stridor. LUNGS: Faint wheezing bilaterally. Normal chest wall mechanics HEART: no murmurs, S1 normal and S2 normal ABDOMEN: abdomen soft, non-tender, normo-active bowel sounds, no masses, no rebound or guarding. BACK: Back is symmetrical on inspection and there is no deformity, no midline tenderness, no CVA tenderness. SKIN: No rashes and no bruising. Diffuse urticaria. UPPER EXTREMITIES: upper extremities are grossly normal. LOWER EXTREMITIES: No pitting edema. NEURO EXAM: Normal sensorium, cranial nerves II-XII grossly intact, normal speech, no gross weakness of arms, no gross weakness of legs. Medical Decision & Procedures ER Provider Diagnostic Interpretation: Radiology results as stated below per my review and the radiologist's interpretation: CHEST ONE VIEW PORTABLE FINDINGS: The bones soft tissues and hemidiaphragms are normal. The cardiomediastinal silhouette is normal. The lungs are clear. The pulmonary vasculature is normal. IMPRESSION: Negative chest. The above report was generated using voice recognition software. It may contain grammatical, syntax or spelling errors. Electronically signed by: Chito Simental M.D. 06/07/2017 12:22 PM Laboratory Results 06/07/17 12:09 Red Blood Count 4.62, Mean Corpuscular Volume 88.5, Mean Corpuscular Hemoglobin 30.7, Mean Corpuscular Hemoglobin Concent 34.7, Mean Platelet Volume 10.2, Neutrophils (%) (Auto) 86.1, Lymphocytes (%) (Auto) 11.3, Monocytes (%) (Auto) 2.2, Eosinophils (%) (Auto) 0.0, Basophils (%) (Auto) 0.1, Neutrophils # (Auto) 12.69, Lymphocytes # (Auto) 1.67, Monocytes # (Auto) 0.33, Eosinophils # (Auto) 0.00, Basophils # (Auto) 0.01 06/07/17 12:09 Test 06/07/17 12:09 White Blood Count 14.74 K/uL (4.8-10.8) Red Blood Count 4.62 M/uL (4.2-5.4) Hemoglobin 14.2 g/dL (12.0-16.0) Hematocrit 40.9 % (37-47) Mean Corpuscular Volume 88.5 fL (80-100) Mean Corpuscular Hemoglobin 30.7 pg (25-34) Mean Corpuscular Hemoglobin Concent 34.7 g/dl (32-36) Platelet Count 401 K/uL (130-400) Mean Platelet Volume 10.2 fL (7.4-10.4) Neutrophils (%) (Auto) 86.1 % Lymphocytes (%) (Auto) 11.3 % Monocytes (%) (Auto) 2.2 % Eosinophils (%) (Auto) 0.0 % Basophils (%) (Auto) 0.1 % Neutrophils # (Auto) 12.69 K/uL (1.4-6.5) Lymphocytes # (Auto) 1.67 K/uL (1.2-3.4) Monocytes # (Auto) 0.33 K/uL (0.11-0.59) Eosinophils # (Auto) 0.00 K/uL (0-0.5) Basophils # (Auto) 0.01 K/uL (0-0.2) RDW Standard Deviation 44.6 fL (36.4-46.3) RDW Coefficient of Variation 13.8 % (11.5-14.5) Immature Granulocyte % (Auto) 0.3 % Immature Granulocyte # (Auto) 0.04 K/uL (0.00-0.02) Anion Gap 11.0 mmol/L (3-11) Estimated GFR () 58.8 Estimated GFR (Non- 50.7 BUN/Creatinine Ratio 21.7 (10-20) Calcium Level 9.2 mg/dl (8.5-10.1) Troponin I < 0.015 ng/ml (0-0.045) Laboratory results per my review. Medications Administered Medications (Trade) Dose Ordered Sig/Vj Route Start Time Stop Time Status Last Admin Dose Admin Epinephrine (Epipen) 0.3 mg STK-MED ONCE .ROUTE 06/07/17 11:53 06/07/17 11:54 DC 06/07/17 11:53 0.3 MG Methylprednisolone Sodium Succinate (Solu-Medrol IV) 125 mg NOW STAT IV 06/07/17 11:54 06/07/17 11:56 DC 06/07/17 12:08 125 MG Diphenhydramine HCl (Benadryl Inj) 50 mg NOW STAT IV 06/07/17 11:54 06/07/17 11:56 DC 06/07/17 12:08 50 MG Famotidine (Pepcid 20mg Iv Push) 20 mg ONE STAT IV 06/07/17 11:54 06/07/17 11:56 DC 06/07/17 12:08 20 MG ECG Per My Interpretation Indication: SOB/dyspnea Rate (beats per minute): 109 Rhythm: sinus tachycardia Findings: T-wave inversion (Inferior), other (Normal axis) ED Course ED COURSE: Vital signs were reviewed and showed tachycardia. The patients medical record was reviewed The above diagnostic studies were performed and reviewed. ED treatments and interventions as stated above. 1152: The patient was evaluated in room A9A. A complete history and physical examination was performed. 1154: Ordered Pepcid 20 mg IV, Benadryl Inj 50 mg IV, Solu-Medrol IV. 1316: Upon reevaluation, the patient is resting comfortably. I discussed my findings with the patient and she understands and agrees with the treatment plan. Based on the patients age, coexisting illnesses, exam and lab findings the decision to treat as an inpatient was made. The patient remained stable while under my care. The patient will be evaluated for further management. Medical Decision Differential diagnosis: Etiologies such as allergic reaction, anaphylaxis, urticaria, Lozano-Fantasma syndrome, toxic epidermal necrolysis, erythema multiforme, cellulitis, as well as others were entertained. Patient is a 46-year-old female who is been seen here 3 times in the past 3 days. Patient took 7 days worth of Augmentin for sinusitis. Patient was initially seen and given steroids, Pepcid and discharge. I saw her yesterday I did give her 1 dose of epinephrine due to swelling of the face and trouble breathing. She was placed on steroids and discharged after 5-6 hours of observation. She returns today for her heart racing trouble breathing. On exam her swelling has improved significantly. She is obviously anxious. Due to the wheezing and to give her another dose of epinephrine. She rested comfortably in the ER following steroids, Benadryl and famotidine. EKG along with blood work was nondiagnostic. Discussed case with internal medicine and she has been here for the past 3 days. She will be admitted for observation overnight. Medication Reconcilliation Current Medication List: was personally reviewed by me Blood Pressure Screening Patient's blood pressure: Normal blood pressure Blood pressure disposition: Did not require urgent referral Consults Time Called: 1312 Consulting Physician: Dr. Yefri Goins Hospitalist Returned Call: [phone] I reviewed the patient's case with Dr. Asif. Buster will evaluate the patient for further management. Impression Primary Impression: Allergic reaction Scribe Attestation The scribe's documentation has been prepared under my direction and personally reviewed by me in its entirety. I confirm that the note above accurately reflects all work, treatment, procedures, and medical decision making performed by me. Departure Information Dispostion Being Evaluated By Hospitalist Referrals Sapna Perez M.D. (PCP) Patient Instructions [facility] Problem Qualifiers Primary Impression: Allergic reaction Encounter type: initial encounter Qualified Codes: T78.40XA - Allergy, unspecified, initial encounter
[2017-06-07] MEDS ORDERED: DiphenhydrAMINE INJ 12.5 MG in SYRINGE 0 ML IV STA (17:37)
[2017-06-07] MEDS ORDERED: hydrOXYzine HCL 25 MG TAB PO STA (17:38)
[2017-06-07] MEDS ORDERED: hydrOXYzine HCL 25 MG TAB PO PRN (17:45)
[2017-06-07] MEDS ORDERED: LORAZEPAM 0.5 MG TAB PO PRN (18:15)
--- NOTE | 2017-06-07 18:17 | Progress Note ---
Progress Note Date of Service Jun 07, 2017. Progress Note ATTENDING ADDENDUM : 46 yo F recently treated with Augmentin for sinus infection presented to ER yesterday with generalized itching , erythematous rash , face and tongue swelling pt was given IV Steroid , Benadryl and Pepcid , Epipen X1 injected as pt was having difficulty breathing presented to ER this Am with worsening of rash , itching and SOB P/E: gen : pleasant , in distress for generalized itching HEENT ; sclera non icteric , PERRLA Ext ; diffuse erythematous maculopapular rash on valdez , torso and upper thing ; + itching Lungs : no wheeze noted A/P : severe drug allergy : possible due to Amoxicillin -added to allergy list pt had Augmentin in past with no allergic reaction also symptoms of angioedema -tongue/face and eyelid swelling -possible to ACEI ( lisinopril D/ludwig added to allergy list ) cont IV Solu Medrol , Benadryl , and Pepcid neb tx ordered for SOB Nanette Asif MD
[2017-06-07] MEDS: ALBUT/IPRATROP 3MG/0.5MG NEB 3 ML VIAL INH SCH ×2 (18:26→20:59)
[2017-06-07] MEDS ORDERED: ALBUTEROL HFA 8 GM INHALER INH ONE (18:30)
[2017-06-07 18:33] VITALS: PULSE 87; O2SAT 97
[2017-06-07 18:45] VITALS: O2SAT 95
[2017-06-07] MEDS: METHYLPREDNISOLONE IV 40 MG in SYRINGE 0 ML IV SCH (18:46)
[2017-06-07] MEDS: FAMOTIDINE IV INJ 20 MG in SYRINGE 3 ML IV SCH (18:47)
[2017-06-07] MEDS ORDERED: METHYLPREDNISOLONE IV 40 MG in SYRINGE 0 ML IV SCH (20:00)
[2017-06-07 20:59] VITALS: PULSE 83; O2SAT 98
[2017-06-07] MEDS ORDERED: NURSING VERBAL MED ORDER ONE (21:30)
[2017-06-07] MEDS: BuPROPion SR 150 MG TABCR PO SCH (21:40)
[2017-06-07] MEDS: GEMFIBROZIL 600 MG TAB PO SCH (21:40)
[2017-06-07] MEDS: TRAMADOL HCL 50 MG TAB PO PRN (21:48)
[2017-06-07] MEDS ORDERED: DiphenhydrAMINE HCL 50 MG/ML VIAL IV SCH ×2 (22:00)
[2017-06-07 22:50] VITALS: BP 105/74; PULSE 97; TEMP 37; O2SAT 96
[2017-06-07] MEDS ORDERED: DiphenhydrAMINE INJ 50 MG in SYRINGE 0 ML IV PRN (23:00)
[2017-06-08] MEDS ORDERED: FAMOTIDINE IV INJ 20 MG in SYRINGE 3 ML IV SCH
[2017-06-08] MEDS: METHYLPREDNISOLONE IV 40 MG in SYRINGE 0 ML IV SCH ×2 (02:19→09:41)
[2017-06-08] MEDS: SODIUM CHLORIDE 0.9% 1000ML 1,000 ML IV SCH (04:58)
[2017-06-08] MEDS: FAMOTIDINE IV INJ 20 MG in SYRINGE 3 ML IV SCH (04:58)
[2017-06-08] MEDS: DiphenhydrAMINE HCL 50 MG/ML VIAL IV PRN ×2 (04:59→10:51)
[2017-06-08 07:14] VITALS: PULSE 107; O2SAT 97
[2017-06-08] MEDS: ALBUT/IPRATROP 3MG/0.5MG NEB 3 ML VIAL INH SCH ×3 (07:14→14:29)
[2017-06-08 07:29] VITALS: BP 145/82; PULSE 97; TEMP 37.1; O2SAT 97
[2017-06-08 07:44] LABS: HEMOGLOBIN 12.7 g/dL (12.0-16.0); MEAN CELL VOLUME 88.7 fL (80-100); MEAN CORPUSCULAR HEMOGLOBIN 30.5 pg (25-34); MEAN CORPUSCULAR HGB CONC 34.3 g/dl (32-36); MEAN PLATELET VOLUME 9.6 fL (7.4-10.4); PLATELET COUNT 318 K/uL (130-400); RED CELL DISTRIBUTION WIDTH CV 13.7 % (11.5-14.5)
[2017-06-08 08:19] LABS: CALCIUM 8.1 mg/dl (8.5-10.1); CREATININE 1.08 mg/dl (0.60-1.20); POTASSIUM 4.1 mmol/L (3.5-5.1)
[2017-06-08] MEDS: ASPIRIN 81 MG ECTAB PO SCH (08:40)
[2017-06-08] MEDS: BuPROPion SR 150 MG TABCR PO SCH ×2 (08:41→20:14)
[2017-06-08] MEDS: GEMFIBROZIL 600 MG TAB PO SCH ×2 (08:41→20:15)
[2017-06-08 11:24] VITALS: PULSE 114; O2SAT 98
--- NOTE | 2017-06-08 14:57 | Progress Note ---
Medicine Progress Note Date & Time of Visit: Jun 08, 2017 at 14:49. Subjective This is a 46yo F with a PMH of HTN, HLD and depression who presents with SOB and diffuse itching. She is much better and asymptomatic at this time. Tolerating PO. Objective Last 8 Hrs Date Time Temp Pulse Resp B/P (MAP) Pulse Ox O2 Delivery O2 Flow Rate FiO2 06/08/17 11:24 114 14 98 Nasal Cannula 2.0 06/08/17 08:00 Nasal Cannula 2.0 06/08/17 07:29 37.1 97 18 145/82 (103) 97 Room Air 06/08/17 07:14 107 14 97 Nasal Cannula 2.0 Physical Exam: GEN: WNWD, in no acute distress, alert and appropriate HEENT: NC/AT, PERRL, normal sclerae, MMM CARDIO: tachy rate, S1/2 heard without m/g/r LUNGS: CTA bilaterally, no crackles, rales or wheezes, good diaphragmatic excursion ABD: soft, non-tender, non-distended, no rebound or guarding, +BS EXTREMITY: RP and DP palpable 2+ bilat, no LE swelling or edema, extremities are warm and well-perfused. Mild rash present on dorsal R foot and one hive approx 1 cm in diameter. NEURO: CN 2-12 intact, no gross focal deficits. MUSC: 5/5 strength throughout, no focal deficits SKIN: warm and dry, macular erythematous rash across anterior chest. Laboratory Results: 06/08/17 07:29 06/08/17 07:29 Test 06/07/17 12:09 06/07/17 16:20 06/08/17 07:29 Immature Granulocyte % (Auto) 0.3 % White Blood Count 14.74 K/uL (4.8-10.8) Red Blood Count 4.62 M/uL (4.2-5.4) 4.17 M/uL (4.2-5.4) Hemoglobin 14.2 g/dL (12.0-16.0) Hematocrit 40.9 % (37-47) Mean Corpuscular Volume 88.5 fL (80-100) 88.7 fL (80-100) Mean Corpuscular Hemoglobin 30.7 pg (25-34) 30.5 pg (25-34) Mean Corpuscular Hemoglobin Concent 34.7 g/dl (32-36) 34.3 g/dl (32-36) Platelet Count 401 K/uL (130-400) Mean Platelet Volume 10.2 fL (7.4-10.4) 9.6 fL (7.4-10.4) Neutrophils (%) (Auto) 86.1 % Lymphocytes (%) (Auto) 11.3 % Monocytes (%) (Auto) 2.2 % Eosinophils (%) (Auto) 0.0 % Basophils (%) (Auto) 0.1 % Neutrophils # (Auto) 12.69 K/uL (1.4-6.5) Lymphocytes # (Auto) 1.67 K/uL (1.2-3.4) Monocytes # (Auto) 0.33 K/uL (0.11-0.59) Eosinophils # (Auto) 0.00 K/uL (0-0.5) Basophils # (Auto) 0.01 K/uL (0-0.2) Immature Granulocyte # (Auto) 0.04 K/uL (0.00-0.02) Troponin I < 0.015 ng/ml (0-0.045) Urine Color YELLOW Urine Appearance CLEAR (CLEAR) Urine pH 5.0 (4.5-7.5) Urine Specific [place] 1.013 (1.000-1.030) Urine Protein NEG (NEG) Urine Glucose (UA) NEG (NEG) Urine Ketones NEG (NEG) Urine Occult Blood NEG (NEG) Urine Nitrite NEG (NEG) Urine Bilirubin NEG (NEG) Urine Urobilinogen NEG (NEG) Urine Leukocyte Esterase NEG (NEG) RDW Standard Deviation 45.0 fL (36.4-46.3) RDW Coefficient of Variation 13.7 % (11.5-14.5) Anion Gap 9.0 mmol/L (3-11) Est Creatinine Clear Calc Drug Dose 73.5 ml/min Estimated GFR () 70.8 Estimated GFR (Non- 61.1 BUN/Creatinine Ratio 25.0 (10-20) Calcium Level 8.1 mg/dl (8.5-10.1) Last 24 Hours Test 06/07/17 16:20 06/08/17 07:29 Urine Color YELLOW Urine Appearance CLEAR Urine pH 5.0 Urine Specific [place] 1.013 Urine Protein NEG Urine Glucose (UA) NEG Urine Ketones NEG Urine Occult Blood NEG Urine Nitrite NEG Urine Bilirubin NEG Urine Urobilinogen NEG Urine Leukocyte Esterase NEG White Blood Count 9.80 K/uL Red Blood Count 4.17 M/uL Hemoglobin 12.7 g/dL Hematocrit 37.0 % Mean Corpuscular Volume 88.7 fL Mean Corpuscular Hemoglobin 30.5 pg Mean Corpuscular Hemoglobin Concent 34.3 g/dl RDW Standard Deviation 45.0 fL RDW Coefficient of Variation 13.7 % Platelet Count 318 K/uL Mean Platelet Volume 9.6 fL Sodium Level 139 mmol/L Potassium Level 4.1 mmol/L Chloride Level 108 mmol/L Carbon Dioxide Level 22 mmol/L Anion Gap 9.0 mmol/L Blood Urea Nitrogen 27 mg/dl Creatinine 1.08 mg/dl Est Creatinine Clear Calc Drug Dose 73.5 ml/min Estimated GFR () 70.8 Estimated GFR (Non- 61.1 BUN/Creatinine Ratio 25.0 Random Glucose 150 mg/dl Calcium Level 8.1 mg/dl Assessment & Plan This is a 46yo F with a PMH of HTN, HLD and depression who presents with SOB and diffuse itching. She is much better and asymptomatic at this time. Tolerating PO. 1. Drug allergy with anaphylaxis-Augmentin and lisinopril thought to be culprits although lisinopril has been ongoing now for two years without issue. Urticaria is gone, but a small hive persists on her R foot. Mild macular rash present on her anterior chest and slightly on her R foot. Her itching has been controlled. She is feeling completely better at this time, is breathing at baseline and is tolerating PO. Will stop steroids and change Pepcid to PRN and monitor her closely for a reemergence of rash or other signs of anaphylaxis returning. IF that is the case will use Epi as needed or other symptom control. REc Allergy follow-up as outpatient and DC with epi-pen. Son with peanut allergy so patient reports that she knows how to use this. 2. HTN-Lisinopril was discontinued and HCTZ held. Will cont to hold at this time while monitoring her and treat BP PRN. 3. Depression-cont Welbutrin 4. Tachycardia-at this point, likely related to breathing treatments that are scheduled. Will back these off to PRN only. DVT Ppx: SCDs Code status: FULL PCP: Ana Dispo: keep and monitor closely overnight off steroids, to home in am if she does well. Rhea Hyde DO [facility] Hospitalist Current Inpatient Medications: Current Inpatient Medications Medications (Trade) Dose Ordered Sig/Vj Route Start Time Stop Time Status Last Admin Dose Admin Acetaminophen (Tylenol Tab) 650 mg Q4H PRN PO 06/07/17 14:30 07/07/17 14:29 Al Hydrox/Mg Hydrox/Simethicone (Maalox Max Susp) 15 ml Q4H PRN PO 06/07/17 14:30 07/07/17 14:29 Magnesium Hydroxide (Milk Of Magnesia Susp) 30 ml Q6H PRN PO 06/07/17 14:30 07/07/17 14:29 Ondansetron HCl (Zofran Inj) 4 mg Q6H PRN IV 06/07/17 14:30 07/07/17 14:29 Sodium Chloride 1,000 ml @ 125 mls/hr Q8H IV 06/07/17 14:30 07/07/17 14:29 06/08/17 04:58 125 MLS/HR Diphenhydramine HCl (Benadryl Extra Strength Cream) 1 appln TID PRN EXT 06/07/17 14:30 07/07/17 14:29 Albuterol (Ventolin Hfa Inhaler) 2 puffs Q4 PRN INH 06/07/17 14:30 07/07/17 14:29 Aspirin (Ecotrin Tab) 81 mg DAILY PO 06/08/17 09:00 07/08/17 08:59 06/08/17 08:40 81 MG Bupropion HCl (Wellbutrin-Sr Tab) 150 mg BID PO 06/07/17 21:00 07/07/17 20:59 06/08/17 08:41 150 MG Gemfibrozil (Lopid Tab) 600 mg BID PO 06/07/17 21:00 07/07/17 20:59 06/08/17 08:41 600 MG Miscellaneous (Iv Fluids Completed) 1 ea PRN PRN N/A 06/07/17 15:30 06/07/18 15:29 Hydroxyzine HCl (Vistaril Tab) 25 mg Q8 PRN PO 06/07/17 17:45 07/07/17 17:44 06/08/17 10:07 25 MG Famotidine 20 mg/ Syringe 5 ml @ 2.5 mls/min Q12H IV 06/07/17 18:30 07/08/17 18:29 06/08/17 04:58 2.5 MLS/MIN Methylprednisolone Sodium Succinate 40 mg/Syringe 0.64 ml @ 1.5 mls/min Q8H IV 06/07/17 18:15 07/07/17 19:59 06/08/17 09:41 1.5 MLS/MIN Albuterol/ Ipratropium (Duoneb) 3 ml Q4RWA INH 06/07/17 18:15 07/07/17 18:14 06/08/17 11:22 3 ML Lorazepam (Ativan Tab) 0.5 mg Q8 PRN PO 06/07/17 18:15 07/07/17 18:14 Tramadol HCl (Ultram Tab) 50 mg Q4 PRN PO 06/07/17 20:15 07/07/17 20:14 06/07/17 21:48 50 MG Diphenhydramine HCl (Benadryl Inj) 50 mg Q6H PRN IV 06/07/17 23:15 07/07/17 23:14 06/08/17 10:51 50 MG
[2017-06-08] MEDS ORDERED: FAMOTIDINE 20 MG TAB PO PRN (15:00)
[2017-06-08 15:49] VITALS: BP 132/87; PULSE 97; TEMP 36.9; O2SAT 96
[2017-06-08] MEDS ORDERED: ALBUT/IPRATROP 3MG/0.5MG NEB 3 ML VIAL INH PRN (18:15)
[2017-06-09] VITALS (8 sets, daily range): BP systolic 124–157; BP diastolic 83–106; PULSE 83–96; TEMP 36.7–37; O2SAT 96–100
[2017-06-09] MEDS: TRAMADOL HCL 50 MG TAB PO PRN (07:12)
[2017-06-09] MEDS: GEMFIBROZIL 600 MG TAB PO SCH ×2 (08:48→20:28)
[2017-06-09] MEDS: BuPROPion SR 150 MG TABCR PO SCH ×2 (08:48→20:28)
[2017-06-09] MEDS: ASPIRIN 81 MG ECTAB PO SCH (08:48)
[2017-06-09] MEDS: DiphenhydrAMINE HCL 50 MG/ML VIAL IV PRN ×2 (11:15→18:27)
[2017-06-09] MEDS ORDERED: HYDROCHLOROTHIAZIDE 25 MG TAB PO ONE (12:00)
--- NOTE | 2017-06-09 15:47 | Progress Note ---
Medicine Progress Note Date & Time of Visit: Jun 09, 2017 at 15:38. 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 She was improved yesterday and was essentially asymptomatic aside from some rash on her anterior chest and a small rash with one wheal on her R foot. She was taken off steroids and Pepcid and watched overnight. She did well until later this morning when she started to develop some tightness in her chest and some numbness in her L hand. She was given Benadryl IV with good response and resolution of symptoms. Case was discussed with dr. Rich-air conditioning service technician Waiter/Waitress Bar at [facility], who recommended Zyrtec 10 BID and Ranitidine 150 BID until seen by an clinical pharmacist. She suggested that the addition of the Augmentin in the setting of lisinopril-the lisinopril can actually lower the threshold for allergic response. Otherwise,she is tolerating PO and asymptomatic. She feels more comfortable staying in the hospital until all symptoms have resolved and are not returning. Objective Last 8 Hrs Date Time Temp Pulse Resp B/P (MAP) Pulse Ox O2 Delivery O2 Flow Rate FiO2 06/09/17 15:01 36.7 86 18 147/100 (116) 98 Room Air 06/09/17 11:00 36.8 96 20 152/95 (114) 97 Room Air 06/09/17 08:45 149/94 (112) 06/09/17 08:00 Room Air Physical Exam: GEN: WNWD, in no acute distress, alert and appropriate HEENT: NC/AT, normal sclerae, MMM CARDIO: reg rate, S1/2 heard without m/g/r LUNGS: CTA bilaterally, no crackles, rales or wheezes, good diaphragmatic excursion ABD: soft, non-tender, non-distended, no rebound or guarding, +BS EXTREMITY: RP and DP palpable 2+ bilat, no LE swelling or edema, extremities are warm and well-perfused. NEURO: CN 2-12 intact, no gross focal deficits. MUSC: 5/5 strength throughout, no focal deficits SKIN: warm and dry, no rash present. One poss wheal on L anterior ankle without rash or surrounding erythema. Laboratory Results: 06/08/17 07:29 2/23/18 07:29 Test 06/07/17 12:09 06/07/17 16:20 06/08/17 07:29 Immature Granulocyte % (Auto) 0.3 % White Blood Count 14.74 K/uL (4.8-10.8) Red Blood Count 4.62 M/uL (4.2-5.4) 4.17 M/uL (4.2-5.4) Hemoglobin 14.2 g/dL (12.0-16.0) Hematocrit 40.9 % (37-47) Mean Corpuscular Volume 88.5 fL (80-100) 88.7 fL (80-100) Mean Corpuscular Hemoglobin 30.7 pg (25-34) 30.5 pg (25-34) Mean Corpuscular Hemoglobin Concent 34.7 g/dl (32-36) 34.3 g/dl (32-36) Platelet Count 401 K/uL (130-400) Mean Platelet Volume 10.2 fL (7.4-10.4) 9.6 fL (7.4-10.4) Neutrophils (%) (Auto) 86.1 % Lymphocytes (%) (Auto) 11.3 % Monocytes (%) (Auto) 2.2 % Eosinophils (%) (Auto) 0.0 % Basophils (%) (Auto) 0.1 % Neutrophils # (Auto) 12.69 K/uL (1.4-6.5) Lymphocytes # (Auto) 1.67 K/uL (1.2-3.4) Monocytes # (Auto) 0.33 K/uL (0.11-0.59) Eosinophils # (Auto) 0.00 K/uL (0-0.5) Basophils # (Auto) 0.01 K/uL (0-0.2) Immature Granulocyte # (Auto) 0.04 K/uL (0.00-0.02) Troponin I < 0.015 ng/ml (0-0.045) Urine Color YELLOW Urine Appearance CLEAR (CLEAR) Urine pH 5.0 (4.5-7.5) Urine Specific [place] 1.013 (1.000-1.030) Urine Protein NEG (NEG) Urine Glucose (UA) NEG (NEG) Urine Ketones NEG (NEG) Urine Occult Blood NEG (NEG) Urine Nitrite NEG (NEG) Urine Bilirubin NEG (NEG) Urine Urobilinogen NEG (NEG) Urine Leukocyte Esterase NEG (NEG) RDW Standard Deviation 45.0 fL (36.4-46.3) RDW Coefficient of Variation 13.7 % (11.5-14.5) Anion Gap 9.0 mmol/L (3-11) Est Creatinine Clear Calc Drug Dose 73.5 ml/min Estimated GFR () 70.8 Estimated GFR (Non- 61.1 BUN/Creatinine Ratio 25.0 (10-20) Calcium Level 8.1 mg/dl (8.5-10.1) Assessment & Plan This is a 46yo F with a PMH of HTN, HLD and depression who presents with a protracted anaphylaxis after 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 She was improved yesterday and was essentially asymptomatic aside from some rash on her anterior chest and a small rash with one wheal on her R foot. She was taken off steroids and Pepcid and watched overnight. She did well until later this morning when she started to develop some tightness in her chest and some numbness in her L hand. She was given Benadryl IV with good response and resolution of symptoms. Case was discussed with dr. Rich-air conditioning service technician Waiter/Waitress Bar at [facility], who recommended Zyrtec 10 BID and Ranitidine 150 BID until seen by an clinical pharmacist. She suggested that the addition of the Augmentin in the setting of lisinopril-the lisinopril can actually lower the threshold for allergic response. Otherwise,she is tolerating PO and asymptomatic. She feels more comfortable staying in the hospital until all symptoms have resolved and are not returning. 1. Drug allergy with protracted anaphylaxis-Augmentin and lisinopril thought to be culprits with the lisinopril likely lowering her threshold for response. Urticaria and rash are resolved and Benadryl controlled her numbness and chest discomfort this morning. Zyrtec and Ranitidine BID, plan for Epi pen and Allergy referral at discharge. Will keep her hospitalized another day in light of persistent reaction this morning. No need for further steroids or prednisone taper. 2. HTN-Lisinopril was discontinued. HCTZ restarted to control BP. Will not start any new agents at this time. 3. Depression-cont Welbutrin DVT Ppx: SCDs Code status: FULL PCP: Ana Dispo: monitor overnight, dispo to home in am if she does well. Rhea Hyde DO [facility] Hospitalist Current Inpatient Medications: Current Inpatient Medications Medications (Trade) Dose Ordered Sig/Vj Route Start Time Stop Time Status Last Admin Dose Admin Acetaminophen (Tylenol Tab) 650 mg Q4H PRN PO 06/07/17 14:30 07/07/17 14:29 Al Hydrox/Mg Hydrox/Simethicone (Maalox Max Susp) 15 ml Q4H PRN PO 06/07/17 14:30 07/07/17 14:29 Magnesium Hydroxide (Milk Of Magnesia Susp) 30 ml Q6H PRN PO 06/07/17 14:30 07/07/17 14:29 Ondansetron HCl (Zofran Inj) 4 mg Q6H PRN IV 06/07/17 14:30 07/07/17 14:29 Diphenhydramine HCl (Benadryl Extra Strength Cream) 1 appln TID PRN EXT 06/07/17 14:30 07/07/17 14:29 Aspirin (Ecotrin Tab) 81 mg DAILY PO 06/08/17 09:00 07/08/17 08:59 06/09/17 08:48 81 MG Bupropion HCl (Wellbutrin-Sr Tab) 150 mg BID PO 06/07/17 21:00 07/07/17 20:59 06/09/17 08:48 150 MG Gemfibrozil (Lopid Tab) 600 mg BID PO 06/07/17 21:00 07/07/17 20:59 06/09/17 08:48 600 MG Miscellaneous (Iv Fluids Completed) 1 ea PRN PRN N/A 06/07/17 15:30 06/07/18 15:29 Lorazepam (Ativan Tab) 0.5 mg Q8 PRN PO 06/07/17 18:15 07/07/17 18:14 Tramadol HCl (Ultram Tab) 50 mg Q4 PRN PO 06/07/17 20:15 07/07/17 20:14 06/09/17 07:12 50 MG Diphenhydramine HCl (Benadryl Inj) 50 mg Q6H PRN IV 06/07/17 23:15 07/07/17 23:14 06/09/17 11:15 50 MG Albuterol/ Ipratropium (Duoneb) 3 ml Q6H PRN INH 06/08/17 18:15 07/07/17 18:14 Famotidine (Pepcid Tab) 20 mg BID PRN PO 06/08/17 15:00 07/08/17 14:59 Hydrochlorothiazide (Hydrochlorothiazide Tab) 12.5 mg DAILY PO 06/10/17 09:00 07/10/17 08:59 Cetirizine HCl (zyrTEC TAB) 10 mg BID PO 06/09/17 21:00 07/09/17 20:59 Ranitidine HCl (zANTac TAB) 150 mg BID PO 06/09/17 21:00 07/09/17 20:59
[2017-06-09] MEDS: RANITIDINE HCL 150 MG TAB PO SCH (20:27)
[2017-06-09] MEDS: CETIRIZINE HCL 10 MG TAB PO SCH (20:27)
[2017-06-10] MEDS: DiphenhydrAMINE HCL 50 MG/ML VIAL IV PRN ×3 (02:59→22:21)
[2017-06-10 07:14] VITALS: BP 129/88; PULSE 82; TEMP 36.8; O2SAT 97
[2017-06-10] MEDS: HYDROCHLOROTHIAZIDE 25 MG TAB PO SCH (07:47)
[2017-06-10] MEDS: CETIRIZINE HCL 10 MG TAB PO SCH ×2 (07:47→20:03)
[2017-06-10] MEDS: RANITIDINE HCL 150 MG TAB PO SCH ×2 (07:47→20:02)
[2017-06-10] MEDS: GEMFIBROZIL 600 MG TAB PO SCH ×2 (07:47→20:03)
[2017-06-10] MEDS: BuPROPion SR 150 MG TABCR PO SCH ×2 (07:47→20:02)
[2017-06-10] MEDS: ASPIRIN 81 MG ECTAB PO SCH (07:47)
[2017-06-10 15:56] VITALS: BP 123/82; PULSE 97; TEMP 37.2; O2SAT 98
[2017-06-10 17:10] VITALS: O2SAT 97
--- NOTE | 2017-06-10 17:18 | Progress Note ---
Medicine Progress Note Date & Time of Visit: Jun 10, 2017 at 17:14. 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 Overnight she developed some chest discomfort again and a rash which improved with Benadryl. This was around 0300. She then developed some more mild symptoms this morning which were improved with the scheduled Zyrtec and Ranitidine. She is doing well now and is completely asymptomatic without any rash. She is otherwise tolerating PO and has no other issues. Objective Last 8 Hrs Date Time Temp Pulse Resp B/P (MAP) Pulse Ox O2 Delivery O2 Flow Rate FiO2 06/10/17 17:10 97 Room Air 06/10/17 15:56 37.2 97 20 123/82 (96) 98 Room Air Physical Exam: GEN: WNWD, in no acute distress, alert and appropriate HEENT: NC/AT, normal sclerae, MMM CARDIO: reg rate, S1/2 heard without m/g/r LUNGS: CTA bilaterally, no crackles, rales or wheezes, good diaphragmatic excursion ABD: soft, non-tender, non-distended, no rebound or guarding, +BS EXTREMITY: RP and DP palpable 2+ bilat, no LE swelling or edema, extremities are warm and well-perfused. NEURO: CN 2-12 intact, no gross focal deficits. MUSC: 5/5 strength throughout, no focal deficits SKIN: warm and dry, no rash present. 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 Overnight she developed some chest discomfort again and a rash which improved with Benadryl. This was around 0300. She then developed some more mild symptoms this morning which were improved with the scheduled Zyrtec and Ranitidine. She is doing well now and is completely asymptomatic without any rash. She is otherwise tolerating PO and has no other issues. 1. Drug allergy with protracted anaphylaxis-Augmentin and lisinopril thought to be culprits with the lisinopril likely lowering her threshold for response. Zyrtec and Ranitidine BID, with Benadryl PRN, plan for Epi pen and Allergy referral at discharge. Will keep her hospitalized another day in light of persistent reaction this morning. No need for further steroids or prednisone taper. I am assuming the lisinopril is still in her system somewhat with last dose 4 days ago, possibly contributing to persistent symptoms. She needs to be symptom-free for 24 hours, minimally prior to leaving. 2. HTN-Lisinopril was discontinued. HCTZ restarted to control BP. Will not start any new agents at this time. BP at goal. 3. Depression-cont Welbutrin DVT Ppx: SCDs Code status: FULL PCP: Ana Dispo: monitor overnight, dispo to home in am if she does well. Rhea Hyde DO [facility] Hospitalist Current Inpatient Medications: Current Inpatient Medications Medications (Trade) Dose Ordered Sig/Vj Route Start Time Stop Time Status Last Admin Dose Admin Acetaminophen (Tylenol Tab) 650 mg Q4H PRN PO 06/07/17 14:30 07/07/17 14:29 06/09/17 18:40 650 MG Al Hydrox/Mg Hydrox/Simethicone (Maalox Max Susp) 15 ml Q4H PRN PO 06/07/17 14:30 07/07/17 14:29 Magnesium Hydroxide (Milk Of Magnesia Susp) 30 ml Q6H PRN PO 06/07/17 14:30 07/07/17 14:29 Ondansetron HCl (Zofran Inj) 4 mg Q6H PRN IV 06/07/17 14:30 07/07/17 14:29 Diphenhydramine HCl (Benadryl Extra Strength Cream) 1 appln TID PRN EXT 06/07/17 14:30 07/07/17 14:29 Aspirin (Ecotrin Tab) 81 mg DAILY PO 06/08/17 09:00 07/08/17 08:59 06/10/17 07:47 81 MG Bupropion HCl (Wellbutrin-Sr Tab) 150 mg BID PO 06/07/17 21:00 07/07/17 20:59 06/10/17 07:47 150 MG Gemfibrozil (Lopid Tab) 600 mg BID PO 06/07/17 21:00 07/07/17 20:59 06/10/17 07:47 600 MG Miscellaneous (Iv Fluids Completed) 1 ea PRN PRN N/A 2/22/18 15:30 06/07/18 15:29 Lorazepam (Ativan Tab) 0.5 mg Q8 PRN PO 06/07/17 18:15 07/07/17 18:14 Tramadol HCl (Ultram Tab) 50 mg Q4 PRN PO 06/07/17 20:15 07/07/17 20:14 06/09/17 07:12 50 MG Diphenhydramine HCl (Benadryl Inj) 50 mg Q6H PRN IV 06/07/17 23:15 07/07/17 23:14 06/10/17 09:16 50 MG Albuterol/ Ipratropium (Duoneb) 3 ml Q6H PRN INH 06/08/17 18:15 07/07/17 18:14 Famotidine (Pepcid Tab) 20 mg BID PRN PO 06/08/17 15:00 07/08/17 14:59 Hydrochlorothiazide (Hydrochlorothiazide Tab) 12.5 mg DAILY PO 06/10/17 09:00 07/10/17 08:59 06/10/17 07:47 12.5 MG Cetirizine HCl (zyrTEC TAB) 10 mg BID PO 06/09/17 21:00 07/09/17 20:59 06/10/17 07:47 10 MG Ranitidine HCl (zANTac TAB) 150 mg BID PO 06/09/17 21:00 07/09/17 20:59 06/10/17 07:47 150 MG
[2017-06-10 21:36] VITALS: BP 124/88; PULSE 88; TEMP 37; O2SAT 97
[2017-06-11] MEDS: DiphenhydrAMINE HCL 50 MG/ML VIAL IV PRN (05:30)
[2017-06-11 07:36] LABS: HEMATOCRIT 41.2 % (37-47); HEMOGLOBIN 14.4 g/dL (12.0-16.0); MEAN CELL VOLUME 86.9 fL (80-100); MEAN CORPUSCULAR HEMOGLOBIN 30.4 pg (25-34); MEAN PLATELET VOLUME 9.5 fL (7.4-10.4); PLATELET COUNT 339 K/uL (130-400); RED CELL DISTRIBUTION WIDTH CV 13.5 % (11.5-14.5); RED CELL DISTRIBUTION WIDTH SD 42.7 fL (36.4-46.3)
[2017-06-11 07:56] VITALS: BP 126/84; PULSE 87; TEMP 36.9; O2SAT 99
[2017-06-11 08:03] LABS: CALCIUM 8.7 mg/dl (8.5-10.1); CREATININE 1.13 mg/dl (0.60-1.20); POTASSIUM 4.7 mmol/L (3.5-5.1)
[2017-06-11] MEDS: CETIRIZINE HCL 10 MG TAB PO SCH ×2 (08:15→20:44)
[2017-06-11] MEDS: ASPIRIN 81 MG ECTAB PO SCH (08:15)
[2017-06-11] MEDS: RANITIDINE HCL 150 MG TAB PO SCH ×2 (08:15→20:44)
[2017-06-11] MEDS: HYDROCHLOROTHIAZIDE 25 MG TAB PO SCH (08:15)
[2017-06-11] MEDS: BuPROPion SR 150 MG TABCR PO SCH (08:15)
[2017-06-11] MEDS: GEMFIBROZIL 600 MG TAB PO SCH ×2 (08:15→20:44)
[2017-06-11 10:21] VITALS: BP 124/89; PULSE 103; TEMP 36.7; O2SAT 98
[2017-06-11] MEDS ORDERED: NURSING VERBAL MED ORDER ONE (10:45)
[2017-06-11] MEDS ORDERED: DiphenhydrAMINE HCL 50 MG/ML VIAL IV ONE (10:45)
[2017-06-11 15:46] VITALS: BP 128/69; PULSE 102; TEMP 37.1; O2SAT 98
[2017-06-11 16:00] VITALS: O2SAT 96
--- NOTE | 2017-06-11 23:14 | Progress Note ---
Medicine Progress Note Date & Time of Visit: Jun 11, 2017 at 13:20. 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 She continues to have a daily rash that she feels would become hives if she let it go without Benadryl as well as some throat tightening and chest tightness; all symptoms resolve with Benadryl. Discussed case with Allergy in [facility] who recommended Zyrtec BID and Ranitidine 150 BID until seen by an storehouse clerk. Augmentin was stopped early last week and last dose of lisinopril was Thurs. She continued to develop symptoms again this morning. I ran the case by Dr. Candice GREGORY (local storehouse clerk) who agreed with current plan. Pt is tolerating PO, denies SOB or chest pain now. Objective Last 8 Hrs Date Time Temp Pulse Resp B/P (MAP) Pulse Ox O2 Delivery O2 Flow Rate FiO2 06/11/17 10:21 36.7 103 18 124/89 (101) 98 Room Air 9.0 06/11/17 08:00 Room Air 06/11/17 07:56 36.9 87 18 126/84 (98) 99 Room Air Physical Exam: GEN: WNWD, in no acute distress, alert and appropriate HEENT: NC/AT, normal sclerae, MMM CARDIO: reg rate, S1/2 heard without m/g/r LUNGS: CTA bilaterally, no crackles, rales or wheezes, good diaphragmatic excursion ABD: soft, non-tender, non-distended, no rebound or guarding, +BS EXTREMITY: RP and DP palpable 2+ bilat, no LE swelling or edema, extremities are warm and well-perfused. NEURO: CN 2-12 intact, no gross focal deficits. MUSC: 5/5 strength throughout, no focal deficits SKIN: warm and dry, no rash present. Laboratory Results: 06/11/17 07:21 06/11/17 07:21 Test 06/07/17 12:09 06/07/17 16:20 06/11/17 07:21 Immature Granulocyte % (Auto) 0.3 % White Blood Count 14.74 K/uL (4.8-10.8) Red Blood Count 4.62 M/uL (4.2-5.4) 4.74 M/uL (4.2-5.4) Hemoglobin 14.2 g/dL (12.0-16.0) Hematocrit 40.9 % (37-47) Mean Corpuscular Volume 88.5 fL (80-100) 86.9 fL (80-100) Mean Corpuscular Hemoglobin 30.7 pg (25-34) 30.4 pg (25-34) Mean Corpuscular Hemoglobin Concent 34.7 g/dl (32-36) 35.0 g/dl (32-36) Platelet Count 401 K/uL (130-400) Mean Platelet Volume 10.2 fL (7.4-10.4) 9.5 fL (7.4-10.4) Neutrophils (%) (Auto) 86.1 % Lymphocytes (%) (Auto) 11.3 % Monocytes (%) (Auto) 2.2 % Eosinophils (%) (Auto) 0.0 % Basophils (%) (Auto) 0.1 % Neutrophils # (Auto) 12.69 K/uL (1.4-6.5) Lymphocytes # (Auto) 1.67 K/uL (1.2-3.4) Monocytes # (Auto) 0.33 K/uL (0.11-0.59) Eosinophils # (Auto) 0.00 K/uL (0-0.5) Basophils # (Auto) 0.01 K/uL (0-0.2) Immature Granulocyte # (Auto) 0.04 K/uL (0.00-0.02) Troponin I < 0.015 ng/ml (0-0.045) Urine Color YELLOW Urine Appearance CLEAR (CLEAR) Urine pH 5.0 (4.5-7.5) Urine Specific [place] 1.013 (1.000-1.030) Urine Protein NEG (NEG) Urine Glucose (UA) NEG (NEG) Urine Ketones NEG (NEG) Urine Occult Blood NEG (NEG) Urine Nitrite NEG (NEG) Urine Bilirubin NEG (NEG) Urine Urobilinogen NEG (NEG) Urine Leukocyte Esterase NEG (NEG) RDW Standard Deviation 42.7 fL (36.4-46.3) RDW Coefficient of Variation 13.5 % (11.5-14.5) Anion Gap 8.0 mmol/L (3-11) Est Creatinine Clear Calc Drug Dose 70.3 ml/min Estimated GFR () 67.0 Estimated GFR (Non- 57.8 BUN/Creatinine Ratio 21.6 (10-20) Calcium Level 8.7 mg/dl (8.5-10.1) Last 24 Hours Test 06/11/17 07:21 White Blood Count 8.40 K/uL Red Blood Count 4.74 M/uL Hemoglobin 14.4 g/dL Hematocrit 41.2 % Mean Corpuscular Volume 86.9 fL Mean Corpuscular Hemoglobin 30.4 pg Mean Corpuscular Hemoglobin Concent 35.0 g/dl RDW Standard Deviation 42.7 fL RDW Coefficient of Variation 13.5 % Platelet Count 339 K/uL Mean Platelet Volume 9.5 fL Sodium Level 139 mmol/L Potassium Level 4.7 mmol/L Chloride Level 105 mmol/L Carbon Dioxide Level 26 mmol/L Anion Gap 8.0 mmol/L Blood Urea Nitrogen 24 mg/dl Creatinine 1.13 mg/dl Est Creatinine Clear Calc Drug Dose 70.3 ml/min Estimated GFR () 67.0 Estimated GFR (Non- 57.8 BUN/Creatinine Ratio 21.6 Random Glucose 104 mg/dl Calcium Level 8.7 mg/dl Assessment & Plan This is a 46yo F with a PMH of HTN, HLD and depression who presents with a protracted 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 She continues to have a daily rash that she feels would become hives if she let it go without Benadryl as well as some throat tightening and chest tightness; all symptoms resolve with Benadryl. Discussed case with Allergy in [facility] who recommended Zyrtec BID and Ranitidine 150 BID until seen by an storehouse clerk. Augmentin was stopped early last week and last dose of lisinopril was Thurs. She continued to develop symptoms again this morning. I ran the case by Dr. Candice GRGEORY (local storehouse clerk) who agreed with current plan. Pt is tolerating PO, denies SOB or chest pain now. 1. Drug allergy with protracted anaphylaxis-Augmentin and lisinopril thought to be culprits with the lisinopril likely lowering her threshold for response. Zyrtec and Ranitidine BID, with Benadryl PRN, plan for Epi pen and Allergy referral at discharge. Will keep her hospitalized another day in light of persistent reaction this morning and will stop Welbutrin as this may be playing a role. No need for further steroids or prednisone taper. I am assuming the lisinopril is still in her system somewhat with last dose 5 days ago, possibly contributing to persistent symptoms. She needs to be symptom-free for 24 hours , minimally prior to leaving. 2. HTN-Lisinopril was discontinued. HCTZ restarted to control BP. Will not start any new agents at this time. BP at goal. 3. Depression-holding Welbutrin with persistent symptoms as this may be a possible trigger. DVT Ppx: SCDs Code status: FULL PCP: Ana Dispo: monitor overnight, dispo to home in am if she does well. Rhea Hyde DO [facility] Hospitalist Current Inpatient Medications: Current Inpatient Medications Medications (Trade) Dose Ordered Sig/Vj Route Start Time Stop Time Status Last Admin Dose Admin Acetaminophen (Tylenol Tab) 650 mg Q4H PRN PO 06/07/17 14:30 07/07/17 14:29 06/09/17 18:40 650 MG Al Hydrox/Mg Hydrox/Simethicone (Maalox Max Susp) 15 ml Q4H PRN PO 06/07/17 14:30 07/07/17 14:29 Magnesium Hydroxide (Milk Of Magnesia Susp) 30 ml Q6H PRN PO 06/07/17 14:30 07/07/17 14:29 Ondansetron HCl (Zofran Inj) 4 mg Q6H PRN IV 06/07/17 14:30 07/07/17 14:29 Diphenhydramine HCl (Benadryl Extra Strength Cream) 1 appln TID PRN EXT 06/07/17 14:30 07/07/17 14:29 Aspirin (Ecotrin Tab) 81 mg DAILY PO 06/08/17 09:00 07/08/17 08:59 06/11/17 08:15 81 MG Bupropion HCl (Wellbutrin-Sr Tab) 150 mg BID PO 06/07/17 21:00 07/07/17 20:59 06/11/17 08:15 150 MG Gemfibrozil (Lopid Tab) 600 mg BID PO 06/07/17 21:00 07/07/17 20:59 06/11/17 08:15 600 MG Miscellaneous (Iv Fluids Completed) 1 ea PRN PRN N/A 06/07/17 15:30 06/07/18 15:29 Lorazepam (Ativan Tab) 0.5 mg Q8 PRN PO 06/07/17 18:15 07/07/17 18:14 Tramadol HCl (Ultram Tab) 50 mg Q4 PRN PO 06/07/17 20:15 07/07/17 20:14 06/09/17 07:12 50 MG Diphenhydramine HCl (Benadryl Inj) 50 mg Q6H PRN IV 06/07/17 23:15 07/07/17 23:14 06/11/17 05:30 50 MG Albuterol/ Ipratropium (Duoneb) 3 ml Q6H PRN INH 06/08/17 18:15 07/07/17 18:14 Famotidine (Pepcid Tab) 20 mg BID PRN PO 06/08/17 15:00 07/08/17 14:59 Hydrochlorothiazide (Hydrochlorothiazide Tab) 12.5 mg DAILY PO 06/10/17 09:00 07/10/17 08:59 06/11/17 08:15 12.5 MG Cetirizine HCl (zyrTEC TAB) 10 mg BID PO 06/09/17 21:00 07/09/17 20:59 06/11/17 08:15 10 MG Ranitidine HCl (zANTac TAB) 150 mg BID PO 06/09/17 21:00 07/09/17 20:59 06/11/17 08:15 150 MG
[2017-06-12 00:08] VITALS: BP 115/80; PULSE 93; TEMP 36.9; O2SAT 97
[2017-06-12 06:55] VITALS: BP 109/76; PULSE 97; TEMP 36.9; O2SAT 98
[2017-06-12] MEDS: CETIRIZINE HCL 10 MG TAB PO SCH (08:37)
[2017-06-12] MEDS: RANITIDINE HCL 150 MG TAB PO SCH (08:37)
[2017-06-12] MEDS: GEMFIBROZIL 600 MG TAB PO SCH (08:37)
[2017-06-12] MEDS: ASPIRIN 81 MG ECTAB PO SCH (08:37)
[2017-06-12] MEDS: HYDROCHLOROTHIAZIDE 25 MG TAB PO SCH (08:37)
[2017-06-12 15:01] VITALS: BP 109/76; PULSE 97; TEMP 36.9; O2SAT 98
--- NOTE | 2017-06-12 15:34 | Progress Note ---
Internal Med Progress Note Date of Service: Jun 12, 2017. Provider Documentation: SUBJECTIVE: Seen and examined at bedside Reports rash resolved, denies itching Also denies SOB, chest pain Eager to get discharged OBJECTIVE: Vital Signs-as noted below Physical Exam: Vitals signs as noted above General Appearance:Moderately built and nourished, no apparent distress Head: normocephalic, Atraumatic Eyes: normal inspection, EOMI, PERRL Neck: supple, Trachea midline Respiratory/Chest: Normal breath sounds, CTA Cardiovascular: S1, S2, No murmur Abdomen/GI:Soft, Non tender, Bowel sounds present Extremities/Musculoskelatal:normal inspection, no edema Neurologic/Psych:AAOX3, grossly no focal neurological deficits Skin: normal color, warm Lab data as noted below. ASSESSMENT & PLAN: Patient is a 46 yr with a PMH of HTN, HLD and depression who presents with protracted anaphylaxis after being treated twice in the ER 2 days. Prior Hospitalist discussed case with Allergy in [facility] who recommended Zyrtec BID and Ranitidine 150 BID until seen by an clinical allergist. Augmentin, lisinopril and Wellbutrin were discontinued Drug Allergy: Protracted anaphylaxis-Augmentin and lisinopril Continue Zyrtec and Ranitidine BID, Benadryl PRN Plan to follow up with pheresis specialist as outpatient Wellbutrin was discontinued as well as thought to be contributing HTN Lisinopril discontinued. HCTZ restarted Depression hold Wellbutrin for now DVT Px: SCDs Code status: Full Code Disposition: Plan to discharge home today Follow up with PCP on 2017 at 11:05AM Follow up with your Control Cabinet Assembler as advised Seek immediate medical attention if your symptoms reoccur or worsen Vital Signs: Date Time Temp Pulse Resp B/P (MAP) Pulse Ox O2 Delivery O2 Flow Rate FiO2 06/12/17 15:01 36.9 97 18 98 Room Air 06/12/17 08:00 Room Air 06/12/17 06:55 36.9 97 18 109/76 (87) 98 Room Air 06/12/17 00:08 36.9 93 20 115/80 (92) 97 Room Air 06/12/17 00:00 Room Air 06/11/17 16:00 96 Room Air 06/11/17 15:46 37.1 102 18 128/69 (50) 98 Room Air
[2017-06-12] MEDS ORDERED: HYDR25TA5 PO (15:37)
[2017-06-12] MEDS ORDERED: ZYR10 PO (15:37)
[2017-06-12] MEDS ORDERED: ZNT150 PO (15:37)
--- NOTE | 2017-06-12 15:39 | Discharge Summary ---
Discharge Summary Date of Service Jun 12, 2017. Discharge Summary Admission Date: Jun 08, 2017 at 21:55 Discharge Date: Jun 12, 2017 Discharge Disposition: Home Principal Diagnosis: Drug Allergy Procedures: CXR: Negative chest Consultations: None Pending Studies/Follow-Up: Follow up with PCP on 2017 at 11:05AM Follow up with your Boat Dock Operator as advised Seek immediate medical attention if your symptoms reoccur or worsen Medication Reconciliation New Medications: Cetirizine HCl (All Day Allergy) 10 Mg Tab 10 MG PO BID for 30 Days, #60 TAB Hydrochlorothiazide (Hydrochlorothiazide) 25 Mg Tab 12.5 MG PO DAILY for 30 Days, #15 TAB 1 Refill Ranitidine HCl (Ranitidine HCl) 150 Mg Tab 150 MG PO BID for 30 Days, #60 TAB Continued Medications: Aspirin (Aspirin Ec) 81 Mg Tab 81 MG PO DAILY Gemfibrozil (Lopid) 600 Mg Tab 600 MG PO BID Discontinued Medications: Bupropion (Wellbutrin Sr) 150 Mg Ertab 150 MG PO BID Famotidine (Pepcid) 20 Mg Tab 20 MG PO BID, TAB Hctz/Lisinopril (Lisinopril/Hctz 10/12.5 Mg) 1 Ea Tab 1 TAB PO DAILY for 30 Days, #30 TAB 5 Refills Admission Information HPI (per Admitting provider): This is a 46yo F with a PMH of HTN, HLD and depression who presents with SOB and diffuse itching. Was seen by PCP on 05/26 and was prescribed a 7 day course of augmentin for acute sinusitis. Developed a full body rash, swelling of her face & lips and diffuse itching and presented to the ED of 06/05. Was treated with IV steroids, benadryl, H2 brayden and was discharged home on medrol dose pack and Pepcid. [place] better until the next morning, when patient returned to ED for worsening itchiness, SOB and throat "tightness". Was given IV steroids, Benadryl and an EpiPen with relief and was discharged home on prednisone. Today , patient noticed SOB upon waking that continued to worsen, so she returned to the ED. Still has diffuse rash with itching. SOB and facial/hand swelling have improved. + Dull, frontal headache. Denies fever, chills, lightheadedness, visual changes, CP, abdominal pain, nausea, vomiting, bowel or bladder changes, weakness or swelling of extremities. Does take lisinopril/hctz for HTN. Endorses poor PO intake over the past few days. Physical Exam (per Admitting): General Appearance: WD/WN, no apparent distress, + pertinent finding ( Facial flushing, resolving facial edema ) Head: normocephalic, atraumatic Eyes: normal inspection, PERRL, sclerae normal ENT: normal ENT inspection, hearing grossly normal, pharynx normal (Dry mucous membranes. No lesions in oropharynx) Neck: supple, thyroid normal, trachea midline Respiratory/Chest: chest non-tender, lungs clear, normal breath sounds, no respiratory distress, no accessory muscle use Cardiovascular: no murmur, normal peripheral pulses, + tachycardia Abdomen/GI: non tender, soft, no organomegaly Back: normal inspection Extremities/Musculoskelatal: normal inspection, no calf tenderness, no pedal edema Neurologic/Psych: no motor/sensory deficits, alert, normal mood/affect, oriented x 3 Skin: normal color, warm/dry, + rash (Diffuse urticaria observed in BUE, BLE , back and chest ) Hospital Course Patient is a 46 yr with a PMH of HTN, HLD and depression who presents with protracted anaphylaxis after being treated twice in the ER 2 days. Prior Hospitalist discussed case with Allergy in [facility] who recommended Zyrtec BID and Ranitidine 150 BID until seen by an public message service supervisor. Augmentin, lisinopril and Wellbutrin were discontinued Drug Allergy: Protracted anaphylaxis-Augmentin and lisinopril Continue Zyrtec and Ranitidine BID, Benadryl PRN Plan to follow up with vessel specialist as outpatient Wellbutrin was discontinued as well as thought to be contributing HTN Lisinopril discontinued. HCTZ restarted Depression hold Wellbutrin for now DVT Px: SCDs Code status: Full Code Disposition: Plan to discharge home today Follow up with PCP on 2017 at 11:05AM Follow up with your Boat Dock Operator as advised Seek immediate medical attention if your symptoms reoccur or worsen Total time spent on discharge = 35 minutes This includes examination of the patient, discharge planning, medication reconciliation, and communication with other providers. Discharge Instructions Discharge Instructions Date of Service Jun 12, 2017. Admission Reason for Admission: Allergic Reaction Discharge Discharge Diagnosis / Problem: Drug Allergy Discharge Goals Goal(s): Decrease discomfort, Improve function Activity Recommendations Activity Limitations: resume your previous activity Exercise/Sports Limitations: as tolerated . Instructions / Follow-Up Instructions / Follow-Up Follow up with PCP on 2017 at 11:05AM Follow up with your Boat Dock Operator as advised Seek immediate medical attention if your symptoms reoccur or worsen Current Hospital Diet Patient's current hospital diet: AHA Diet (Heart Healthy) Discharge Diet Recommended Diet: AHA Diet (Heart Healthy) Pending Studies Studies pending at discharge: no Medical Emergencies . Who to Call and When: Medical Emergencies: If at any time you feel your situation is an emergency, please call 911 immediately. . Non-Emergent Contact Non-Emergency issues call your: Primary Care Provider, Specialist (Forms Examiner ) Call Non-Emergent contact if: you have a fever, your pain is not controlled, your pain is worsening, your pain is unusual for you, your pain is concerning you, you have any medication questions Seek immediate medical attention if your symptoms reoccur or worsen . . "Provider Documentation" section prepared by Arcenio Canales. . VTE Core Measure Inpt VTE Proph given/why not?: SCD's <Electronically signed by Arcenio Canales MD> Signed: 06/12/17 1538 Signed: The status of this report is Signed * If report status is Draft, the document has not been finalized by the responsible provider.
== END 2017-06-12 16:08 | disposition home or self-care (01) | DRG 916 ==
LOC: C.EDB 11:42 → INTOOBSV 14:18 → C.MS2W 14:18 → ENRESERV 15:13 → OBSVTOIN 06-08 21:55
PROVIDERS: ADMIT Hospitalist; ATTEND Internal Medicine
DX: T88.6XXA Anaphylactic reaction due to adverse effect of correct drug or medicament properly administered, initial encounter (principal); T78.3XXA Angioneurotic edema, initial encounter; T36.0X5A Adverse effect of penicillins, initial encounter; T46.4X5A Adverse effect of angiotensin-converting-enzyme inhibitors, initial encounter; T43.295A Adverse effect of other antidepressants, initial encounter; R00.0 Tachycardia, unspecified; R51 Headache; I10 Essential (primary) hypertension; E78.5 Hyperlipidemia, unspecified; F32.9 Major depressive disorder, single episode, unspecified; Z79.82 Long term (current) use of aspirin; Z79.899 Other long term (current) drug therapy; Z88.0 Allergy status to penicillin; Z88.8 Allergy status to other drugs, medicaments and biological substances; Z82.49 Family history of ischemic heart disease and other diseases of the circulatory system